=== PATIENT | male | born 1950 | race Caucasian/White ===

== ENCOUNTER 2016-03-08 19:46 | Inpatient (IN) | payer MEDICARE ==
[~2016-03-08] VITALS: Ht 170.2 cm; Wt 72.6 kg
[~2016-03-08 19:46] MED LIST: ASCO10007 PO; ASPI325T32 PO; CHOL200020 PO; DILT30TA30 PO; FENO160T14 PO; GLUC1CAP35 PO; HYDR25TA4 PO; INSU100I13 SUBQ; INSU100I18 SUBQ; INSU100I25 SQ; KRIL1CAP PO; LISI40TA PO; METF10002 PO; VENL75CA PO; fentaNYL-PF 50 mCg/mL 2 mL Inj ONE
[2016-03-08 20:09] VITALS: BP 130/71; PULSE 108; RESP 16; O2SAT 97
--- NOTE | 2016-03-08 21:06 | ED.REPORT ---
HPI-General Illness Date of Service Mar 08, 2016 ED Provider: Júnior Cuellar MD Patient is a 66 year old male with a history of diabetes mellitus, hypertension , and recurrent abscess to his left upper thigh who presents to the ED with a large abscess to his left upper leg that was been draining purulent discharge since yesterday. He denies associated pain or warmth of the area. The patient first has surgery in August of 2015 after he developed an abscess on his left upper thigh, unknown cause. He then developed another abscess in this same location, for which he also underwent an I&D procedure. All of these surgeries were preformed at [facility], but he is unsure of who his surgeon was. He states that when he was last discharged from their facility he was informed that he was "no longer their problem". The patient was seen by Dr. Lerner today, who told him to present to [facility] to establish care at this facility. Patient was found to have an elevated WBC and an ultrasound of the area that showed a complex area of heteroechogenicity consistent with abscess. He denies fever, chills, nausea, or vomiting. Nursing Notes Stated Complaint: LEFT THIGH ABSCESS Chief Complaint: Skin Rash/Abscess Nursing Notes Reviewed: Yes Allergies: Coded Allergies: No Known Allergies (Verified Allergy, Unknown, 03/08/16) Scheduled Ascorbic Acid (Vitamin C) 1,000 Mg Tab.chew 1,000 MG PO DAILY Aspirin (Aspirin) 325 Mg Tablet.dr 325 MG PO DAILY Atorvastatin (Lipitor) 20 Mg Tablet 20 MG PO DAILY Cholecalciferol (Vitamin D3) (Vitamin D3) 2,000 Unit Capsule 2,000 UNIT PO DAILY Diltiazem ER (Diltiazem ER) 120 Mg Cap.er.12h 120 MG PO DAILY Fenofibrate (Fenofibrate) 160 Mg Tablet 160 MG PO DAILY Finasteride (Finasteride) 5 Mg Tablet 5 MG PO DAILY Insulin Detemir (Levemir Flextouch) 100 Unit/1 Ml Insuln.pen 30 UNIT SQ QAM Insulin Lispro (HumaLOG U100 Insulin Pen) 100 Unit/1 Ml Insuln.pen UNIT SUBQ TID -INSULIN sliding scale insulin Melatonin/Pyridoxine (Melatonin 5 mg Tablet) 1 Each Tablet 1 EACH PO HS Metformin (Metformin) 500 Mg Tablet 1,000 MG PO BID Mirtazapine (Mirtazapine) 15 Mg Tablet 15 MG PO HS Tamsulosin (Flomax) 0.4 Mg Capsule 0.4 MG PO DAILY Venlafaxine ER (Effexor XR) 75 Mg Cap.er.24h 225 MG PO DAILY Vitamin E Mixed (Vitamin E) 400 Unit Capsule 400 UNIT PO DAILY Scheduled PRN Acetaminophen (Extra Strength Non-Aspirin) 500 Mg Tablet 1,000 MG PO Q4H PRN PRN For Pain General Time Seen by MD: 21:06 Chief Complaint Other (left thigh abscess) Hx Obtained From: Patient Arrived By: Walk-in Sudden in Onset?: No Onset Occurred: Yesterday Symptom Duration: Since onset Location: : Thigh left Severity: Current: No pain currently Severity: Maximum: Moderate Recent Healthcare: Recent doctor visit, Previous surgery Similar Sx Previous: Yes Past Medical History Past Medical History heart murmur Reports: Diabetes mellitus, Hyperlipidemia, Hypertension Reports: Depression Past Surgical History recurrent I&D of left upper thigh abscess adenoidectomy Reports: Tonsillectomy Smoking History Never Smoker Social History Alcohol Use: "Social" Drug Use: Denies drug use Other Social History: Local resident 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 Physical Exam Vital Signs Vital Signs Date Time Temp Pulse Resp B/P Pulse Ox O2 Delivery O2 Flow Rate FiO2 03/08/16 20:09 36.8 108 16 130/71 97 Room Air Initial VS: Reviewed Skin: Warm, Dry, No cyanosis Neurologic: Alert, Oriented, Nonfocal Psychiatric: Mood/affect normal, Behavior normal, Normal thought content General/Constitutional: Awake, Alert, No acute distress Head / Eyes: Normocephalic, PERRL, EOMI ENT: Airway patent, Mucous membranes moist Neck: Supple, Full range of motion Respiratory / Chest: Breath sounds NL, Breath sounds = bilat, No respiratory distress, No rales, No rhonchi, No wheezing Cardiovascular: Heart rate NL, Regular rhythm, Heart sounds NL, No murmurs Upper Extremities Upper Extremity / MS: Full range of motion, Neurologic intact, Vascular intact Lower Extremity / Pelvis / MS: No erythema, Neurologic intact, Vascular intact Vertical wound to the left thigh, 2cm long area draining mildly purulent serous material. Martin made in ultrasound show upper extension to the trochanter superiorly and down to the lower thigh inferiorly. No redness surrounding or bulk. Interpretation & Diagnostics US EXTREMITY SONOGRAM LIMITED, CONCRETE JOURNEYMAN IMPRESSION: Complex area of heteroechogenicity within the left side the area of concern. Finding is consistent with history of abscess. Other etiologies can include hematoma. Dictated by: Nicole Orlando M.D. on 03/08/2016 at 20:01 Approved by: Nicole Orlando M.D. on 03/08/2016 at 20:01 Lab Results Interpretation Result Diagram: 03/08/16 2205 03/09/16 0604 ECG Interpretation ECG Interpretation: Tachycardia, Rate 100 Time: 21:59 Interpreted by: ED physician Normal ECG Interpretation: No acute ischemic changes X-Ray Chest Interpretation Chest Xray Interpretation: Impression: No acute process. View: Portable Interpretation / Wet Read by: Wet read ED physician Re-Eval/Medical Decision Med Decision/Clinical Course 66-year-old referred for evaluation of a large abscess draining on his left thigh. He had a 25,000 white count with outpatient lab done earlier today. He is quite anemic with a hemoglobin of 6.8. Cause of that is not known at this time. He will require transfusion preoperatively, and is admitted to medicine service with surgical consultation. Preop EKG is benign. X-rays unremarkable. Source of Hx: Old records Time of Eval: 21:43 Re-Evaluation/Progress Note: Informed the patient that he will need to be admitted to the hospital for surgery. Patient understands and agrees with this plan. All questions were addressed. Time of Eval: 22:53 Patient Status: Condition improved Re-Evaluation/Progress Note: Informed the patient that he is anemic on labs. He will need to be transfused and then taken to the OR. Patient understands and agrees with this plan. Consultation #1: Referral / Consult Name: Chintan Ha MD Consulted With: Surgeon Call Returned at: 21:44 Commercial Fisher: Will see patient, Agrees with eval, Agrees with plan, Requested OR, Accepts admit Note: Spoke with Dr. Ha, surgeon, about the patient's case. He agrees with the plan for surgery and to admit the patient. Consultation #2: Referral / Consult Name: Chintan Ha MD Consulted With: Surgeon Call Returned at: 22:50 Note: Spoke with Dr. Ha. Informed him of the finding of a low H&H. Patient will need to be transfused and then taken to the OR. Admit to medicine. Consultation #3: Referral / Consult Name: Fidel Park MD Consulted With: Hospitalist Call Returned at: 22:55 Commercial Fisher: Will see patient, Agrees with eval, Agrees with plan, Accepts admit Note: Spoke with Dr. Park, hospitalist, who agrees to accept the patient for admit. Counseled Regarding: Diagnosis, Lab results, Need for admission Discharge & Departure Shift Change Sign-Out Response to Therapy: Improved Primary Impression: Abscess of left thigh Additional Impressions: Leukocytosis Leukocytosis type: unspecified Qualified Code: D72.829 - Elevated white blood cell count, unspecified SIRS (systemic inflammatory response syndrome) Anemia Anemia type: unspecified type Qualified Code: D64.9 - Anemia, unspecified Disposition: ADMITTED TO HOSPITAL Discharge Condition All VS Reviewed: Yes Condition: Stable Referrals: Blas Lerner MD (PCP) Isaíasibe Attestation Portions of this note were transcribed by Melanie Aranda. I, Dr. Cuellar personally performed the history, physical exam and medical decision-making; I reviewed and confirmed the accuracy of the information in the transcribed note. Signed by: Letty Lawrence, 03/08/2016 2300 copies to: Blas Lerner MD, Christopher W MD Mar 08, 2016 21:06 Melanie Aranda Mar 08, 2016 21:45
[2016-03-08] MEDS ORDERED: ATOR20TA PO (21:16)
[2016-03-08] MEDS ORDERED: TAMS0.4C98 PO (21:16)
[2016-03-08] MEDS ORDERED: FINA5TAB9 PO (21:16)
[2016-03-08] MEDS ORDERED: ACET-2561 PO (21:16)
[2016-03-08] MEDS ORDERED: DILT120C10 PO (21:16)
[2016-03-08] MEDS ORDERED: MIRT15TA6 PO (21:17)
[2016-03-08] MEDS ORDERED: MELA1TAB16 PO (21:17)
[2016-03-08] MEDS ORDERED: METF500T4 PO (21:17)
[2016-03-08] MEDS ORDERED: VITA400C64 PO (21:18)
[2016-03-08] MEDS ORDERED: CHOL200047 PO (21:19)
[2016-03-08] MEDS ORDERED: ASCO100089 PO (21:19)
[2016-03-08] MEDS ORDERED: 0.9% Sodium Chloride 1,000 ML IV ONE (21:38)
[2016-03-08] MEDS ORDERED: Piperacillin-Tazo 3.375 Gm Inj 3.375 GM in Dextrose 5% Minibag Plus 50 ML IV ONE (22:15)
[2016-03-08 22:34] LABS: INR 1.25 ratio
[2016-03-08 22:39] LABS: Magnesium 1.9 mg/dL (1.6-2.6); Phosphorus 2.6 mg/dL (2.5-4.9)
[2016-03-08 22:43] LABS: BASOPHILS % (AUTO) 0.1 % (0-3); EOSINOPHILS % (AUTO) 0.3 % (0-5); MONOCYTES % (AUTO) 25.9 % (4-12); Mean Corpuscular Hemoglobin 36.2 pg (27.0-35.0); Mean Corpuscular Volume 111.2 fL (81-100); Platelet Count 171 bil/L (150-400)
--- NOTE | 2016-03-08 22:45 | PCM.HPANE ---
Patient Data Surgeon Admitting Provider: Attending Provider:Chintan Ha MD Primary Care Physician:Blas Lerner MD Other Provider:RashadocGhadaQuinter Anesthesia Reason for Visit Thigh Abscess Leukocytosis Ht/WT & BMI Height (Feet): 5 Height (Inches): 7 Weight (Kilograms): 74.55 Body Mass Index Allergies Coded Allergies: No Known Allergies (Verified Allergy, Unknown, 03/08/16) Past Anesthesia History Anesthesia History: Denies:: Abnormal Airway, Anesthesia Reactions, Difficult Intubation, Fam Anesthesia Reaction, Fam Malignant Hypertherm, Malignant Hyperthermia Diabetes History Hx Diabetes?: Yes MRSA MRSA: No Medications Blood Thinner: Aspirin Reported Medications Ascorbic Acid (Vitamin C)1,000 Mg Tab.chew1,000 Mg PO DAILY 03/08/16 Cholecalciferol (Vitamin D3) (Vitamin D3)2,000 Unit Capsule2,000 Unit PO DAILY 03/08/16 Vitamin E Mixed (Vitamin E)400 Unit [id number] Unit PO DAILY 03/08/16 Mirtazapine 15 Mg Hdyqzu28 Mg PO HS 03/08/16 Metformin 500 Mg Tablet1,000 Mg PO BID 03/08/16 Melatonin/Pyridoxine (Melatonin 5 mg Tablet)1 Each Tablet1 Each PO HS 03/08/16 Tamsulosin (Flomax)0.4 Mg Capsule0.4 Mg PO DAILY 03/08/16 Finasteride 5 Mg Tablet5 Mg PO DAILY 03/08/16 Diltiazem ER 120 Mg Cap.er.34e477 Mg PO DAILY 03/08/16 Atorvastatin (Lipitor)20 Mg Wnmljy77 Mg PO DAILY 03/08/16 Acetaminophen (Extra Strength Non-Aspirin)500 Mg Tablet1,000 Mg PO Q4H PRN For Pain 03/08/16 Aspirin 325 Mg Tablet.dr325 Mg PO DAILY 08/19/14 Insulin Detemir (Levemir Flextouch)100 Unit/1 Ml Insuln.pen30 Unit SQ QAM 08/18/14 Insulin Lispro (HumaLOG U100 Insulin Pen)100 Unit/1 Ml Insuln.pen Unit SUBQ TID- INSULIN sliding scale insulin 08/18/14 Fenofibrate 160 Mg Vwsinj765 Mg PO DAILY 08/18/14 Venlafaxine ER (Effexor XR)75 Mg Cap.er.99d107 Mg PO DAILY 04/27/14 Discontinued Reported Medications Ascorbic Acid (Vitamin C)1,000 Mg Tablet1,000 Mg PO DAILY 08/19/14 Cholecalciferol (Vitamin D3) (Vitamin D-3)2,000 Unit Capsule2,000 Unit PO DAILY 08/19/14 Insulin Glargine (Lantus U100 Solostar Insulin Pen)100 Unit/1 Ml Insuln.pen1 Unit SUBQ QPM-INSULIN #1 PENINJ Ref 0 08/19/14 Lisinopril 40 Mg Ikgmin11 Mg PO DAILY 30 Days Ref 0 08/18/14 Krill/Om3/Dha/Epa/Om6/Lip/Astx (Krill Oil 1,000 mg Softgel)1 Each Capsule1 Each PO 08/18/14 Hydrochlorothiazide 25 Mg Hnhexi93 Mg PO DAILY 30 Days Ref 0 08/18/14 Glucosa Raya 2Kcl/Chondroitin Raya (Glucosamine & Chondroitin Cap)1 Each Capsule1 Each PO 08/18/14 Metformin 1,000 Mg Tablet1,000 Mg PO BIDWM 30 Days Ref 0 04/27/14 Diltiazem (Cardizem)30 Mg Tablet PO ACHS 30 Days Ref 0 04/27/14 History HEENT History: Denies:: Abnormal Airway Difficult Intubation Hearing Problem Hx of Heart Problems?: Yes Cardiovascular History: Positive for:: Hypertension Denies:: Congestive Heart Failure Hx of Respiratory Problem?: No Respiratory History: Denies:: Tuberculosis Neurological History: Denies:: CVA Hx of GI Problems?: Yes Psycho Social History: Positive for:: Hx Depression Hx Surgeries?: Yes (TONSILS/ADENOIDS) Hx Any Other Health Problems?: Yes Hx Diabetes: Yes Hx Alcohol Use: Yes ("OCCASIONALLY")Hx Substance Use: No Smoking Status: Never Smoker Have You Smoked inLast 12 mo: No Stop/Bang TAINA Risk Assessment: Low Risk, <3 Yes TAINA Category 1: Yes Risk Assessment Category Category 1A: Patient has history of documented sleep apnea, and HAS NOT received any narcotic, sedative or anesthesia administration during this stay. Category 1B: Patient has history of documented sleep apnea, and HAS received any narcotic , sedative or anesthesia administration during this stay Category 2: Patient has SUSPECTED Obstructive Sleep Apnea, and HAS received any narcotic , sedative or anesthesia administration during this stay. Category 3: Patient has SUSPECTED Obstructive Sleep Apnea and HAS NOT received narcotic, sedative or anesthesia administration during this stay. Category 4: Outpatient in Procedural Areas with known sleep apnea or who screen positive for High Risk via the STOP/BANG questionnaire. Exam Exam Vital Signs Vital Signs Date Time Temp Pulse Resp B/P Pulse Ox O2 Delivery O2 Flow Rate FiO2 03/08/16 20:09 36.8 108 16 130/71 97 Room Air General Appearance: Alert HEENT/AIRWAY: MP 2 Lungs: Clear to Auscultation Heart: Exam Unremarkable Meds/Labs/Diagnostics Admission Meds Current Medications Sodium Chloride 1,000 ml @ 0 mls/hr Q0M ONCE IV Last administered on 22:27; Start 03/08/16 at 21:38; Stop 03/08/16 at 21:46; Status DC Piperacillin Sod/ Tazobactam Sod/ Dextrose/Water (Zosyn 3.375 Gm Inj/D5W Minibag Plus) 50 ml @ 100 mls/hr ONCE ONCE IV Last administered on 03/08/16 22:24; Start 03/08/16 at 22:15; Stop 03/08/16 at 22:44; Status DC Labs CBC Test 03/08/16 22:05 03/08/16 22:52 White Blood Count 21.2th/mm3 (3.8-10.1) Red Blood Count 1.88mil/mm3 (4.40-5.80) Hemoglobin 6.8g/dL (13.8-17.2) Hematocrit 20.9% (41.0-50.0) Mean Corpuscular Volume 111.2fL (81-100) Mean Corpuscular Hemoglobin 36.2pg (27.0-35.0) Mean Corpuscular Hemoglobin Concent 32.5% (32.0-37.0) Red Cell Distribution Width 19.1% (12.3-15.4) Platelet Count 171bil/L (150-400) Neutrophils (%) (Auto) 62.0% (40-74) Lymphocytes (%) (Auto) 7.3% (14-46) Monocytes (%) (Auto) 25.9% (4-12) Eosinophils (%) (Auto) 0.3% (0-5) Basophils (%) (Auto) 0.1% (0-3) Erythrocyte Sedimentation Rate > 140mm/hr (0-30) Hold Purple Top Tube Received (Received) CMP Test 03/08/16 22:05 Sodium Level 132mEq/L Potassium Level 4.7mEq/L Chloride Level 96mEq/L Carbon Dioxide Level 21mmol/L Blood Urea Nitrogen 22mg/dL Creatinine 1.16mg/dL Estimat Glomerular Filtration Rate 67mL/min Glucose Level 154mg/dL Lactic Acid Level 1.5mmol/L Calcium Level 8.9mg/dL Phosphorus Level 2.6mg/dL Magnesium Level 1.9mg/dL Total Bilirubin 0.3mg/dL Aspartate Amino Transf (AST/SGOT) 14U/L Alanine Aminotransferase (ALT/SGPT) 7U/L Alkaline Phosphatase 74U/L Total Protein 7.1g/dL Albumin 2.9g/dL Test 03/08/16 22:05 03/08/16 22:17 Prothrombin Time 13.4sec (8.1-12.5) Prothromb Time International Ratio 1.25ratio Activated Partial Thromboplast Time 32.3sec (22.8-33.0) Plan Impression Patient chart reviewed, patient interviewed and anesthestic plan with risks, benefits, and alternatives discussed, and informed consent obtained. ASA Physical Status: ASA3 Severe Disease Anesthetic Plan: GA Bene/Risks/Altern/Consents: Yes HP Complete Prior to Induction: Yes Other Patient's questions answered, agree to proceed. Haja Stratton MD Mar 08, 2016 22:45
[2016-03-08 23:09] LABS: ERYTHROCYTE SEDIMENTATION RATE > 140 mm/hr (0-30)
[2016-03-08 23:13] LABS: APPEARANCE,URINE CLOUDY (CLEAR,HAZY); COLOR,URINE DARK YELLOW (YELLOW); OCCULT BLOOD,URINE SMALL (NEGATIVE); PH,URINE 5.5 (5.0-8.0); UROBILINOGEN,URINE NORMAL (NORMAL)
[2016-03-08] MEDS ORDERED: Lactated Ringer's 1,000 ML IV ONE (23:15)
[2016-03-08] MEDS ORDERED: Ondansetron 2 mg/mL 2 mL Inj ONE (23:23)
[2016-03-08] MEDS ORDERED: Propofol 10,000 mCg/mL 20 mL Inj ONE (23:23)
[2016-03-08] MEDS ORDERED: Bupivacaine-MPF 0.5% W/EPI 30 mL Inj INFILTRATE ONE (23:46)
[2016-03-08] MEDS ORDERED: Labetalol 5 mg/mL 4 mL Inj IV PRN (23:50)
[2016-03-08] MEDS ORDERED: HYDROmorphone 1 mg/mL Inj IVPUSH PRN (23:50)
[2016-03-08] MEDS ORDERED: Lactated Ringer's 500 ML IV PRN (23:50)
[2016-03-08] MEDS ORDERED: MetoCLOpramide 5 mg/mL 2 mL Inj IVPUSH PRN (23:50)
[2016-03-08] MEDS ORDERED: Ondansetron 2 mg/mL 2 mL Inj IVPUSH PRN (23:50)
[2016-03-08] MEDS ORDERED: Dexamethasone 4 mg/mL Inj IVPUSH PRN (23:50)
[2016-03-08] MEDS ORDERED: fentaNYL-PF 50 mCg/mL 2 mL Inj IVPUSH PRN (23:50)
[2016-03-08] MEDS ORDERED: Phenylephrine 10,000 mCg/mL Inj IVPUSH PRN (23:50)
[2016-03-08] MEDS ORDERED: EPHEDrine Sulfate 50 mg/mL Inj IVPUSH PRN (23:50)
[2016-03-08] MEDS ORDERED: Lactated Ringer's 1,000 ML IV SCH (23:50)
[2016-03-08] MEDS ORDERED: Atropine 0.4 mg/mL Inj IVPUSH PRN (23:50)
[2016-03-09] VITALS (18 sets, daily range): BP systolic 92–122; BP diastolic 53–80; PULSE 66–100; RESP 18–31; O2SAT 92–97
--- NOTE | 2016-03-09 00:24 | PCM.ANEP2 ---
Post Anesthesia Evaluation ASA/CMS Post Anesthesia VS in Patient's Normal Range?: Yes Resp Stable; Airway Patent?: Yes CV Function & Hydration Stable: Yes Mental Status Recovered?: Yes Pain control Satisfactory?: Yes N/V Control Satisfactory?: Yes Haja Stratton MD Mar 09, 2016 00:24
--- NOTE | 2016-03-09 00:24 | PCM.ANEP1 ---
Post Anesthesia Phase 1 PACU Phase 1 Assessment Vital Signs Vital Signs Date Time Temp Pulse Resp B/P Pulse Ox O2 Delivery O2 Flow Rate FiO2 03/08/16 20:09 36.8 108 16 130/71 97 Room Air BP 113/58 sat 93% HR90 T37.9 awake Anesthetic Administered: GA Level of Alertness: Awake, talking CONTRERAS's with Equal Strength: Yes Pain: No Nausea or Vomiting: No Oxygen Delivery: Room Air Lungs: Clear to Auscultation Dermatome Level: Full Sensation Haja Stratton MD Mar 09, 2016 00:24
--- NOTE | 2016-03-09 00:34 | PCM.SURGOP ---
Surgical Operative Report Date of Service: Mar 09, 2016 Pre Operative Diagnosis Left thigh abscess Post Operative Diagnosis Chronic left thigh subfascial abscess Procedure: Incision and drainage of complex left thigh subfascial abscess with debridement Surgeon and Manager Er: Surgeon: Chintan Ha MD Assistants: Erinn Jimenez MS3 Indication for Procedure 66-year-old diabetic man who presented in August with a perirectal abscess, requiring incision and drainage at [facility]. Reportedly, the abscess was large and complex. He then recovered, but developed a left thigh abscess, requiring incision and drainage, and a large subsequent seroma. Imaging studies are not complete, in terms of imaging his entire thigh and pelvis at the same time, but there is possibly some suggestion of fluid tracking from his perirectal collection to his left lateral thigh. He presented to his primary care provider with increasing swelling of the left thigh. He had a leukocytosis of 22,000, and an ultrasound was performed today which demonstrated a 30 cm complex fluid collection in the left thigh. After discussion of risks and benefits, he agreed to proceed with incision and drainage of left thigh abscess. Findings: The collection measured 30 cm x 8 cm, with a depth of 6 cm. It was subfascial, and extended posterior to the left greater trochanter. A definite connection to the perirectal abscess cavity could not be demonstrated. There was a small amount of pus, but a large amount of gelatinous chronic inflammatory debris. Procedure Details After smooth induction of general anesthesia, he was placed in the supine position, and was prepped and draped in wide sterile fashion. A procedural pause was performed according to the SCOAP checklist, and all were found to be in agreement. The existing left anterior thigh incision was explored with a hemostat, yielding some turbid yellow fluid, which was collected and sent for culture. Probing that incision with blunt Dunia clamp followed by a Yankauer suction revealed that the subfascial fluid collection extended to the ramírez placed by ultrasound, extending 30 cm craniocaudal. Counterincisions were made with electrocautery at the superior and inferior aspects, on the lateral thigh. The distal incision was at the level of the femoral condyle. The mid thigh incision was extended with electrocautery. All 3 incisions measured approximately 2-3 cm in length craniocaudal. Through those incisions, the subfascial cavity was explored. It contained a small amount of purulent fluid, but a large amount of chronic inflammatory debris and gelatinous material. This was debris did and evacuated. The most useful instrument for debridement of the gelatinous debris was a D&C curet. Loculations were broken up. At the end of debridement, there was no significant residual gelatinous debris. When the superior extent of the cavity was explored, and extended through a narrow tunnel posterior to the left greater trochanter. This area could not be fully explored at the time of this operation. If he has evidence of incomplete healing, and exam under anesthesia in the lithotomy position while explored through his perirectal wound would be useful to see if a fistulous connection is present. Once the gelatinous debris had been evacuated, the cavity was extensively irrigated with warm saline and suctioned. Hemostasis was adequate. The wounds were then connected using one-inch David drains 2, looped through the deep components, and secured to themselves using 2-0 nylon suture. Sterile dressings were then applied to the skin using abdominal pads and a Kerlix wrap. At the end of the case all needle and sponge counts were correct 2. The patient was awakened from anesthesia without difficulty, and taken to the recovery room in satisfactory condition, having tolerated the procedure well. Complications There were no periprocedural complications identified. Surgical Specimen Removed: No Specimen sent to Pathology: Not applicable Anesthetic Plan: GA Grafts, Implants: None Output, Estimated Blood Loss: 20 Blood Administration during cosme: No Drains: Pen Paige Catheters: None copies to: Blas Lerner MD, Joshua D MD Mar 09, 2016 00:34
[2016-03-09] MEDS ORDERED: Polyethylene Glycol (PEG) 17 Gm Powder PO PRN (00:45)
[2016-03-09] MEDS ORDERED: Glucose 40% Oral Gel 15 Gm Tube PO PRN (00:45)
[2016-03-09] MEDS ORDERED: Ondansetron 2 mg/mL 2 mL Inj IVPUSH PRN (00:45)
[2016-03-09] MEDS ORDERED: Alum-Mag Hydrox-Simeth 30 mL Suspension PO PRN (00:45)
--- NOTE | 2016-03-09 00:47 | PCM.HPMED ---
Subjective Date of Service Mar 09, 2016 Primary Provider: Admitting Physician: Fidel Park MD Primary Care Physician: Blas Lerner MD Attending Physician: Chintan Ha MD Chief Complaint: left thigh abscess History of Present Illness: Patient is a 66 year old male with a history of diabetes mellitus, chronic afib , hypertension, osteomyelitis, and recurrent abscess to his left upper thigh who presents to the ED with a large abscess to his left upper leg that was been draining purulent discharge since yesterday. Patient was originally evaluated at and sent to the ED for further treatment. He reports the symptoms began yesterday and he has noticed subjective fevers. He denies any chills, n/v/d, or neck stiffness. Patient reports that he has had multiple I&Ds of this left thigh and merced-rectal abscess in the past year at [facility] in [place]. He reports he had a drain placed, but that was removed about a month ago. He was recently at [facility] for rehab and IV antibiotics via a PICC line for his abscess and osteomyelitis. In the ED his vitals were stable. His labs were pertinent for WBC of 21.2 and Hgb of 6.8 with MCV of 111.2 and ESR of >140 and lactic of 1.5. His UA showed Large LEs with >50 urine WBC but no casts. He had an U/S of his left thigh that is consistent with abscess formation. Surgery was notified and patient was taken for urgent I&D. Review of Systems: 12 Point ROS negative except as stated in HPI Allergies Coded Allergies: No Known Allergies (Verified Allergy, Unknown, 03/08/16) PMH Hydrocele BPH w/o LUTS Cavitary Lesion of Lung Chronic Atrial Fibrillation T2DM requiring Insulin H/o Osteomyelitis of left femur H/o Perirectal Absccess Chronic Anemia Hyperlipidemia Mood disorder Surgical History Multiple I&D with drain placement of left thigh/merced-rectal abscess Family History History of [place] and Stroke- Father Social History Hx Alcohol Use: Yes ("OCCASIONALLY") Hx Substance Use: No Hx Tobacco Use: No Smoking Status: Never Smoker Living Arrangement: Assisted Living Exam Vital Signs Vital Sign - Last Date Time Temp Pulse Resp B/P Pulse Ox O2 Delivery O2 Flow Rate FiO2 03/08/16 20:09 36.8 108 16 130/71 97 Room Air Intake and Output 03/08/16 03/08/16 03/09/16 Cumulative From/Thru 15:00 23:00 07:00 03/08/16 19:52 - 03/08/16 23:15 Intake Total 250 ml 1000 ml 1250 ml Balance 250 ml 1000 ml 1250 ml Intake IV Total 250 ml 1000 ml 1250 ml Exam Gen: Well developed male in NAD HEENT: Sclera anicteric, Oropharynx non-erythematous Neck: Soft, non-tender CV: RRR, soft systolic murmur noted Resp: CTAB, normal effort Abd; Soft, non-tender, non-distended MSK: Approximately 2cm vertical open wound with purulent drainage on left anterior thigh. MS grossly intact and equal Neuro: Sensation grossly intact, Alert and Oriented x3 Psych: Appropriate mood and affect Skin: Warm, dry, wound as above. Lab and Diagnostics Result Diagram: 03/08/16220403/08/162204 X-Rays, CTs and MRIs US EXTREMITY SONOGRAM LIMITED, SHOVELER IMPRESSION: Complex area of heteroechogenicity within the left side the area of concern. Finding is consistent with history of abscess. Other etiologies can include hematoma. Dictated by: Nicole Orlando M.D. on 03/08/2016 at 20:01 Approved by: Nicole Orlando M.D. on 03/08/2016 at 20:01 ECG Interpretation ECG Interpretation: Tachycardia, Rate 100 Time: 21:59 Interpreted by: ED physician Normal ECG Interpretation: No acute ischemic changes X-Ray Chest Interpretation Chest Xray Interpretation: Impression: No acute process. View: Portable Interpretation / Wet Read by: Wet read ED physician Assessment & Plan Patient is a 66 year old male with a history of diabetes mellitus, hypertension , osteomyelitis, and recurrent abscess to his left upper thigh who presents to the ED for evaluation of large left thigh abscess with purulent drainage that began yesterday. #Abscess with Purulent Drainage, Left anterior thigh, POA This is a recurrent problem for this patient. He is urgently taken by General Surgery for I&D. Upon further questioning, patient reports that he continues to inject his Insulin into his thighs. With his recurrent infections, will educate patient to inject in a new area. Wound care consult pending, Wound was left open for drainage. Abscess culture pending, Consider antibiotics if drainage insufficient for treatment. Advance diet as tolerated after surgery IV Dilaudid prn pain #Chronic Macrocytic Anemia, POA We do not have any of his previous records, but he does report chronic anemia although he is unsure why and denies history of alcoholism Hgb 6.9 on admit, will transfuse 2 units after surgery Monitor H&H #Chronic Atrial fibrillation, POA Per history, patient has chronic afib, only on full dose Aspirin. Continue Aspirin 325mg daily Continue Diltiazem ER daily #Asymptomatic Bacteriuria, POA Pyuria noted on UA. Will await patient's culture since he does not complain of any symptoms. #Insulin Dependent DM2, POA Per med rec, patient injects Levemir 30 units QAM and Lispro S/S Will place patient on Lispro Medium correctional scale, Will continue Metformin after surgery Diabetic education recommended #Hypertension, POA Continue patient's home medications #Hyperlipidemia, POA Continue Statin #Mood Disorder, POA Continue Effexor and Mirtazapine, He reports this is for his depression #BPH, POA Continue Flomax Pain Evaluation: Adequate Pain Control VTE Prophylaxis: Sub-Q Heparin (Unfractionated) Resuscitation Status: CPR: Attempt Resuscitation Attending Statement The patient was seen and examined together with Dr. Jay on 03/08 and I agree with the history, exam and plan as outlined in the note above. Silviano Jay DO Mar 09, 2016 00:23 Fidel Park MD Mar 09, 2016 01:29
[2016-03-09] MEDS ORDERED: diphenhydrAMINE 25 mg Capsule PO ONE (01:20)
[2016-03-09] MEDS ORDERED: 0.9% Sodium Chloride 250 ML IV PRN (01:20)
[2016-03-09] MEDS: Heparin 5,000 Unit/mL Inj SUBQ SCH ×3 (01:42→16:06)
[2016-03-09 06:50] LABS: Mean Corpuscular Hemoglobin 34.5 pg (27.0-35.0); Mean Corpuscular Volume 108.4 fL (81-100); Platelet Count 143 bil/L (150-400)
[2016-03-09 08:17] LABS: NEUTROPHILS % (AUTO) 65 % (40-74)
[2016-03-09 08:18] LABS: BASOPHILS % (AUTO) 0 % (0-3); EOSINOPHILS % (AUTO) 1 % (0-5); MONOCYTES % (AUTO) 20 % (4-12)
[2016-03-09] MEDS: Insulin GLARgine 100 Unit/mL Syringe SUBQ SCH (08:30)
[2016-03-09 08:50] LABS: ERYTHROCYTE SEDIMENTATION RATE > 140 mm/hr (0-30)
[2016-03-09] MEDS: Insulin LISPRO 300 Unit/3 mL Inj SUBQ SCH ×4 (09:05→22:00)
[2016-03-09] MEDS: Diltiazem CD 120 mg ER24 Capsule PO SCH (09:43)
[2016-03-09] MEDS: Venlafaxine XR 75 mg ER24 Capsule PO SCH (09:43)
[2016-03-09] MEDS: Ascorbic Acid 500 mg Tablet PO SCH (09:45)
--- NOTE | 2016-03-09 09:51 | DRSVH ---
PROCEDURE: X-RAY CHEST ONE VIEW, PORTABLE ([id number]) INDICATIONS: preop TECHNIQUE: One view of the chest was acquired. COMPARISON: [facility], CR, XR CHEST 2V AP/PA AND LAT, 11/27/2015, 10:50 AM. [facility], US, US VENOUS LEG DPLX UNI LT, 01/11/2016, 17:02. FINDINGS: Surgical changes and devices: None. Lungs and pleura: No pleural effusions or pneumothorax. Lungs are clear. Mediastinum: Mediastinal contours appear normal. Heart size is normal. Bones and chest wall: No suspicious bony lesions. Overlying soft tissues appear unremarkable. IMPRESSION: No acute cardiopulmonary disease. Dictated by: Toney Wellington RRA Interpreted: Deana Briseno MD on 03/09/2016 at 9:50 Transcribed by: JOSE on 03/09/2016 at 9:50 Approved by: Deana Briseno MD, PhD on 03/09/2016 at 16:34
[2016-03-09] MEDS ORDERED: Piperacillin-Tazo 3.375 Gm Inj 3.375 GM in Dextrose 5% Minibag Plus 50 ML IV SCH (12:10)
[2016-03-09] MEDS: Vancomycin Dose per Pharmacist XX SCH (12:10)
--- NOTE | 2016-03-09 12:29 | PCM.PNMED ---
Subjective Date of Service Mar 09, 2016 Subjective Patient appears comfortable resting in bed. He denies any fevers or chills. He did go to the OR yesterday with general surgery for I&D of recurrent left thigh abscess. Patient tells me this is been going on for the past 6 months. He has been seen at least 3 times in [facility] for evaluation of this. Also of note patient is fairly anemic and he tells me that he had an extensive workup of his anemia including GI tract evaluation which did not show a source of blood loss. He tells me that they thought it was due to bleeding into that abscess area. He did receive transfusions last night of 2 units PRBCs. Exam Vital Signs Vital Sign - Last Date Time Temp Pulse Resp B/P Pulse Ox O2 Delivery O2 Flow Rate FiO2 03/09/16 08:59 36.9 28 100/64 96 Room Air 03/09/16 06:19 90 03/09/16 00:50 2 Intake and Output 03/08/16 03/08/16 03/09/16 Cumulative From/Thru 15:00 23:00 07:00 03/08/16 00:33 - 03/09/16 06:04 Intake Total 250 ml 1699 ml 1949 ml Output Total 270 ml 270 ml Balance 250 ml 1429 ml 1679 ml Intake Oral 354 ml 354 ml IV Total 250 ml 1345 ml 1595 ml Output Urine Total 250 ml 250 ml Estimated Blood Loss 20 ml 20 ml # Bowel Movements 0 0 Exam Constitutional: Middle-aged man who appears comfortable Head: Normocephalic atraumatic Eyes: PERRLA DC EOMI Mouth: No lesions Chest: Clear to auscultation Cor: Regular rate and rhythm S1-S2 without murmur Abdomen: Soft nontender bowel sounds present Extremities: Right lower extremity has some old scarring areas in the anterior streeter same at the left. He does have his left upper thigh which is recently dressed by wound care hence I will not take that off at this time. Neuro: Alert and oriented 3, motor strength is intact bilaterally IVs and Medications Medications Reviewed: Medications were reviewed in detail Lab and Diagnostics Laboratory Tests 72 Hours Test 03/08/16 22:05 03/08/16 22:17 03/08/16 22:52 03/09/16 06:04 White Blood Count 21.2th/mm3 (3.8-10.1) 22.6th/mm3 (3.8-10.1) Red Blood Count 1.88mil/mm3 (4.40-5.80) 2.03mil/mm3 (4.40-5.80) Hemoglobin 6.8g/dL (13.8-17.2) 7.0g/dL (13.8-17.2) Hematocrit 20.9% (41.0-50.0) 22.0% (41.0-50.0) Mean Corpuscular Volume 111.2fL (81-100) 108.4fL (81-100) Mean Corpuscular Hemoglobin 36.2pg (27.0-35.0) 34.5pg (27.0-35.0) Mean Corpuscular Hemoglobin Concent 32.5% (32.0-37.0) 31.8% (32.0-37.0) Red Cell Distribution Width 19.1% (12.3-15.4) % (12.3-15.4) Platelet Count 171bil/L (150-400) 143bil/L (150-400) Neutrophils (%) (Auto) 62.0% (40-74) 65% (40-74) Lymphocytes (%) (Auto) 7.3% (14-46) 5% (14-46) Monocytes (%) (Auto) 25.9% (4-12) 20% (4-12) Eosinophils (%) (Auto) 0.3% (0-5) 1% (0-5) Basophils (%) (Auto) 0.1% (0-3) 0% (0-3) Erythrocyte Sedimentation Rate > 140mm/hr (0-30) > 140mm/hr (0-30) Prothrombin Time 13.4sec (8.1-12.5) Prothromb Time International Ratio 1.25ratio Activated Partial Thromboplast Time 32.3sec (22.8-33.0) Sodium Level 132mEq/L (134-144) 133mEq/L (134-144) Potassium Level 4.7mEq/L (3.5-5.2) 3.9mEq/L (3.5-5.2) Chloride Level 96mEq/L (97-108) 98mEq/L (97-108) Carbon Dioxide Level 21mmol/L (18-29) 20mmol/L (18-29) Blood Urea Nitrogen 22mg/dL (8-27) 21mg/dL (8-27) Creatinine 1.16mg/dL (0.76-1.27) 1.29mg/dL (0.76-1.27) Estimat Glomerular Filtration Rate 67mL/min (>59) 59mL/min (>59) Glucose Level 154mg/dL (60-99) 294mg/dL (60-99) Lactic Acid Level 1.5mmol/L (0.4-2.0) Calcium Level 8.9mg/dL (8.5-10.1) 7.9mg/dL (8.5-10.1) Phosphorus Level 2.6mg/dL (2.5-4.9) Magnesium Level 1.9mg/dL (1.6-2.6) Total Bilirubin 0.3mg/dL (0.0-1.2) 0.4mg/dL (0.0-1.2) Aspartate Amino Transf (AST/SGOT) 14U/L (0-50) 12U/L (0-50) Alanine Aminotransferase (ALT/SGPT) 7U/L (0-44) 6U/L (0-44) Alkaline Phosphatase 74U/L (25-160) 66U/L (25-160) Total Protein 7.1g/dL (6.4-8.4) 5.7g/dL (6.4-8.4) Albumin 2.9g/dL (3.4-5.0) 2.8g/dL (3.4-5.0) Procalcitonin 1.44ng/mL (See Comment) Urine Color Dark yellow (YELLOW) Urine Appearance Cloudy (CLEAR,HAZY) Urine pH 5.5 (5.0-8.0) Urine Specific [place] 1.020 (1.003-1.035) Urine Protein 30mg/dL (NEG,TRACE) Urine Glucose (UA) Negativemg/dL (NEGATIVE) Urine Ketones Negativemg/dL (NEGATIVE) Urine Occult Blood Small (NEGATIVE) Urine Nitrite Negative (NEGATIVE) Urine Bilirubin Negative (NEGATIVE) Urine Urobilinogen Normalmg/dL (NORMAL) Urine Leukocyte Esterase Large (NEGATIVE) Urine RBC 0-2/hpf (0-2) Urine WBC >50/hpf (0-5) Urine Epithelial Cells Occasional/hpf (NONE-MOD) Urine Crystals None seen (NONE SEEN) Urine Bacteria None/hpf (NONE-FEW) Urine Hyaline Casts None/lpf (NONE) Urine Granular Casts None seen (NONE SEEN) Urine Waxy Casts None seen (NONE SEEN) Urine Red Blood Cell Casts None seen (NONE SEEN) Urine White Blood Cell Casts None seen (NONE SEEN) Urine Mucus None seen (None Seen) Urine Trichomonas None seen (NONE SEEN) Urine Yeast None (NONE SEEN) Urinalysis Comment Urine Culture Reflexed Indicated Hold Purple Top Tube Received (Received) Band Neutrophils % 3% (1-5) Metamyelocytes % 2% (0-0) Myelocytes % 2% (0-0) Result Diagram: 03/09/16 0604 03/09/16 0604 X-Rays, CTs and MRIs US EXTREMITY SONOGRAM LIMITED, CLASSIFIED ADVERTISING MANAGER IMPRESSION: Complex area of heteroechogenicity within the left side the area of concern. Finding is consistent with history of abscess. Other etiologies can include hematoma. Dictated by: Nicole Orlando M.D. on 03/08/2016 at 20:01 Approved by: Nicole Orlando M.D. on 03/08/2016 at 20:01 ECG Interpretation ECG Interpretation: Tachycardia, Rate 100 Time: 21:59 Interpreted by: ED physician Normal ECG Interpretation: No acute ischemic changes X-Ray Chest Interpretation Chest Xray Interpretation: Impression: No acute process. View: Portable Interpretation / Wet Read by: Wet read ED physician Assessment & Plan Patient is a 66 year old male with a history of diabetes mellitus, hypertension , osteomyelitis, and recurrent abscess to his left upper thigh who presents to the ED for evaluation of large left thigh abscess with purulent drainage that began yesterday. #Abscess with Purulent Drainage, Left anterior thigh, POA This is a recurrent problem for this patient. He is urgently taken by General Surgery for I&D. Upon further questioning, patient reports that he continues to inject his Insulin into his thighs. With his recurrent infections, will educate patient to inject in a new area. Wound care consult pending, Wound was left open for drainage. Abscess culture pending, Consider antibiotics if drainage insufficient for treatment. Gram stain shows many WBCs and some gram-positive cocci Advance diet as tolerated after surgery IV Dilaudid prn pain We will get MRI with contrast of left femur to further investigate particularly in light of such a high sedimentation rate Dr. Melquiades Berrios infectious disease was consult regarding this patient #Chronic Macrocytic Anemia, POA We do not have any of his previous records, but he does report chronic anemia although he is unsure why and denies history of alcoholism Hgb 6.9 on admit, will transfuse 2 units after surgery Monitor H&H Patient notes that he had been diagnosed with anemia before did get blood transfusions previously as mentioned in above in subjective section. We will get old records to further review We will check iron studies, B12 folate and reticulocyte count. We will try to have the lab add those to the labs that were obtained prior to his transfusion. Guaiac stools #Chronic Atrial fibrillation, POA Per history, patient has chronic afib, only on full dose Aspirin. Continue Aspirin 325mg daily Continue Diltiazem ER daily #Asymptomatic Bacteriuria, POA Pyuria noted on UA. Will await patient's culture since he does not complain of any symptoms. There was a significant amount of epithelial cells in the specimen so we will reorder clean catch urine for micro and culture if indicated #Insulin Dependent DM2, POA Per med rec, patient injects Levemir 30 units QAM and Lispro S/S Will place patient on Lispro Medium correctional scale, Will continue Metformin after surgery Diabetic education recommended #Hypertension, POA Continue patient's home medications #Hyperlipidemia, POA Continue Statin #Mood Disorder, POA Continue Effexor and Mirtazapine, He reports this is for his depression #BPH, POA Continue Flomax VTE Prophylaxis: Sub-Q Heparin (Unfractionated) Resuscitation Status: CPR: Attempt Resuscitation Time spent 45 minutes Melba Burton MD Mar 09, 2016 12:29
[2016-03-09 12:30] LABS: Unsaturated Iron Binding 111.6 ug/dL
[2016-03-09] MEDS ORDERED: 0.9% Sodium Chloride 100 ML ONE (13:14)
[2016-03-09] MEDS: Piperacillin-Tazo 3.375 Gm Inj 3.375 GM in Dextrose 5% Minibag Plus 50 ML IV SCH ×2 (15:56→15:58)
--- NOTE | 2016-03-09 17:17 | CONS ---
[address] [address] CONSULTATION REPORT PATIENT: CAPRI SALINAS : 1950 MR#: [id number] ADMIT: 03/08/2016 JOB ID: [id number] DATE OF SERVICE: 03/09/[address] Melba Burton for this consult. REASON FOR CONSULT: Perirectal and thigh abscesses. HISTORY OF PRESENT ILLNESS: The patient is a 66-year-old gentleman who has underlying diabetes, and was in his usual state of excellent health until this summer when he retired from his job at the [employer] where he had been keeping [employer] for almost 40 years. Shortly thereafter, he developed an extensive perirectal abscess for which he was hospitalized at [facility] in [place]. He reported that hospitalization involved multiple surgeries and several weeks on an inpatient basis in the hospital. At the conclusion of that, he was still having drainage from his perirectal area and was being treated with IV antibiotics. He was transferred to one of the [facility] here in [facility]. Subsequent to that, he developed a thigh abscess which required debridement and drainage and eventually a 2nd surgery was required for thigh abscess at [facility] in January. Following this episode, the patient had initially had a drain placed in his left thigh and received additional antibiotics with IV antibiotics through [facility] before the antibiotics were stopped and the drains were pulled. Following the conclusion of the pulling of the last drain, the patient was having ongoing spontaneous drainage from his left thigh as well as from two areas around his left buttock. This drainage looked relatively uninfected and he felt reasonably well though he was still confined to a rehab facility and was unable to ambulate without the assistance of a walker. In the days leading up to this admission, the patient was not receiving any antibiotics and was living at the longterm facility. He reports that just prior to yesterday's admission that the spontaneous drainage from the left thigh wound changed color and had become more of a chunky milky consistency which was of great concern to him. The volume also increased quite a bit over baseline and, for that reason, she sought evaluation and was admitted here yesterday. The patient was then taken to the operating room just past midnight by Dr. Ha of Surgery to clean out a very extensive left thigh abscess. Considerable turbid fluid was obtained as well as some gelatinous material. It was unclear to Dr. Ha at the time of surgery whether or not this thigh abscess connected in fact to his still draining perirectal abscess area, but it seemed likely apparently to Dr. Ha that it did though he was not able to completely explore it during the surgery. The patient did not have any associated fevers, chills, or sweats with this nor did he have swelling or tenderness in the left thigh but rather just noticed a change in the volume and consistency of the spontaneous drainage. Since yesterday, the patient has been in the hospital here receiving vancomycin and Zosyn as empiric antibiotics and he has undergone the extensive debridement of his left thigh. The patient states he was seen by numerous specialists during his multiple stays at [facility], but he was unclear as to what final diagnosis might have been established behind his perirectal and left thigh abscesses. He notes that his diabetes has actually been in fairly good control and he has never had any similar such infection. He also specifically denies any history compatible with inflammatory bowel disease and has no family history of Crohn's or ulcerative colitis. PAST MEDICAL HISTORY: 1. Type 2 diabetes. 2. Benign prostatic hypertrophy. 3. History of cavitary lung lesion. 4. AFib. 5. History of left femur osteomyelitis. 6. History of recurrent perirectal and left thigh abscess in the current time. 7. Hyperlipidemia. SOCIAL HISTORY: The patient [place], [place]. 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 He is a non-cigarette smoker and only a very occasional drinker. FAMILY HISTORY: Negative for inflammatory bowel disease. Negative for TB. Negative for recurrent abscess. REVIEW OF SYSTEMS: Was done. The patient has no significant headache, visual change, sore throat, sores in the mouth, cough, shortness of breath, chest pain, nausea, vomiting, or diarrhea. He has had the draining wounds around his left rectum as well as his left thigh which culminated in yesterday's surgery. PHYSICAL EXAMINATION: Reveals an afebrile gentleman, temperature 36.9, pulse 90, respiratory rate 28, blood pressure 100/64. He is saturating well on 96%. Examination of the head reveals no notable abnormalities. Mental status is normal. Eyes without conjunctivitis or scleral icterus. Oral cavity without thrush or hairy leukoplakia. No pharyngitis. Neck without adenopathy. Lungs: Clear to auscultation. Cardiac: Tones regular rate and rhythm on cardiac exam. Abdomen: Basically soft and nontender. No organomegaly is appreciated. No ascites. No suprapubic fullness is noted. No abnormalities of the penis or scrotum are noted. The patient's left thigh is wrapped in a huge postoperative dressing which was just applied earlier today, and we did not remove that dressing. There is some blood leaking through it, however, and so we did not turn the patient to see his perirectal draining abscesses because of the ongoing issues with his left thigh. The left leg distal to the area of incision and bandage is benign- appearing. The entire right lower extremity is benign-appearing. Patient is neurologically intact but as he notes he is very weak in the lower extremities and has been since the onset of all these surgeries and abscesses. No skin rash or abnormality is noted. LABORATORIES: Include a white count of 22,600, platelet count 143,000. There are 2% metamyelocytes, 2% myelocytes. Sed rate of 140. Creatinine is 1.29, and that is increased from 1.16 yesterday already. Liver function tests normal. Albumin 2.9 on admission. Urinalysis has greater than 50 white cells, interestingly. Cultures of the urine are negative at 24 hours. The abscess drainage fluid has many polys and a few gram-positive cocci. Blood cultures are pending. Imaging of the chest shows no acute cardiopulmonary disease. In reviewing some old cultures, he does have a culture here from the opposite right leg from two years ago which grew group B strep and MSSA. Otherwise, we have nothing of great interest in the micro results from before. IMPRESSION: This is quite an unusual case of a diabetic gentleman who was reportedly in excellent health with fairly well-controlled diabetes until summer when he developed a left perirectal abscess which required a very long hospitalization at [facility] with extensive debridement, drainage and IV antibiotics. He then went to the [facility] and went on to develop a left thigh abscess which was drained, then recurred and which required another long drainage at [facility] in January with additional placement of drains, debridement and long IV antibiotics still in a longterm facility. Most recently, his drains were pulled and he was having some degree of spontaneous drainage from two sites in the perirectal area and one site in the thigh. Over the past 48 hours or so, this got much worse with thicker, more purulent drainage from the left thigh which led to his admission and other extensive debridement in the left thigh with the discovery of a recurrent abscess. The management here is fairly straightforward in that the patient has had the definitive treatment which is debridement and placement of the drains and is currently receiving IV antibiotics with vancomycin and Zosyn while we await cultures. The bigger issue is why he keeps getting recurrent abscesses. I agree with plans to check a hemoglobin A1c and see how well-controlled his diabetes is; clearly out of control diabetes could predispose to such recurrent abscesses. Another concern is he could have a bowel fistula on the basis of inflammatory bowel disease, ischemic colitis or perhaps some other trauma or perhaps some other process which is allowing outflow of bowel contents causing a perirectal abscess with tracking into the thigh. Another set of possibilities would involve the possibilities of profound immunosuppression such as immunoglobulin or complement deficiency or human immunodeficiency virus infection. RECOMMENDATIONS: 1. I agree with vancomycin and Zosyn for now. 2. Will check HIV, hep C, quantitative immunoglobulins, CH50 for complement activity and a CD4/CD8 ratio. 3. Will need all the records from [facility] or at least the discharge summaries and micro results and infectious disease consults from his recent admissions there. 4. MRSA screen of the nose would be helpful and we will order that tonight. NAKIA
[2016-03-09] MEDS ORDERED: PYRIDOXINE PO SCH (21:00)
[2016-03-09] MEDS ORDERED: MELATONIN PO SCH (21:00)
--- NOTE | 2016-03-09 22:54 | DRSVH ---
PROCEDURE: MRI FEMUR LEFT WITH AND WITHOUT CONTRAST ([id number]) INDICATIONS: recurrent left thigh abscess TECHNIQUE: Noncontrast coronal T1 spin echo and STIR, sagittal T1 spin echo with fat saturation and STIR, axial T1 spin echo and T2 fast spin echo with fat saturation. After the administration of contrast, axial/ sagittal/coronal T1 spin echo with fat saturation through the left thigh. COMPARISON: None. FINDINGS: Image quality: Limited by patient motion. Bones: Increased T2 signal and postcontrast enhancement noted in the superior margin of the greater trochanter of the left femur. There is cortical destruction identified in the superior margin of the greater trochanter of the left femur compatible with osteomyelitis Increased T2 signal and contrast -enhancement is noted in the left ischial tuberosity. The left common hamstring tendon is avulsed. No erosive changes are identified in the left ischial tuberosity. Increased T2 signal and contrast-e nhancement involving the left ischial tuberosity may represent reactive change associated with hamstr ing avulsion or early osteomyelitis. Soft tissues: Extensive edema is noted throughout the subcutaneous soft tissues of the left thigh mo st compatible with infectious cellulitis. Extensive edema is noted throughout the musculature of the left thigh compatible with infectious myositis and superficial/deep fasciitis. No definite evidence of necrotizing fasciitis. Multiple fluid collections with peripheral enhancement are noted in the le ft thigh. There is a 1.0 x 3.5 x 9.0 cm in fluid collection in the soft tissues posterior to the lef t ischial tuberosity (series 11, image 11; series 10, image 7). Fluid is noted in the left trochante gladys bursa. The left trochanteric bursa wall is thickened and demonstrates postcontrast enhancement. Left trochanteric bursa measures 6.1 x 1.2 x 5.8 cm (series 9, image 10; series 11, images 7-10). F indings suspicious for infectious left trochanteric bursitis. Small fluid collection is noted in the vastus lateralis muscle (see series 11, images 15-28. Post procedure changes compatible with I&D an d drainage placement are noted in the region of the fluid collection and the vastus lateralis. Fluid collection with enhancing periphery is noted in the biceps femoris muscle that measures 2.1 x 2.0 x 2.7 cm (series 11 image 19; series 9 image 8). Small fluid collection with enhancing periphery is no [place] in the left obturator muscle that measures approximately 0.4 x 1.8 cm (series 11, image 14). Lef t sciatic nerve is enlarged with increased internal signal and postcontrast enhancement (series 11, i mages 15-20) compatible with nonspecific neuritis. IMPRESSION: 1. Osteomyelitis involving the superior tip of the greater trochanter of the left femur. 2. Nonspecific subchondral marrow edema involving the left ischial tuberosity which could represent reactive change associated with avulsed left common hamstring tendon or early osteomyelitis. 3. Multiple abscesses involving the left trochanteric bursa, within the left biceps femoris muscle, within the left obturator muscle and in the left vastus lateralis muscle. I&D procedure with drain p lacement is noted in the left vastus lateralis musculature. 4. Extensive left thigh cellulitis, myositis and fasciitis. No definite evidence of necrotizing fas ciitis identified in the current study. 5. Nonspecific left sciatic neuritis. Dictated by: Deana Briseno MD, PhD on 03/09/2016 at 22:52 Approved by: Deana Briseno MD, PhD on 03/09/2016 at 22:52
[2016-03-10] MEDS: Heparin 5,000 Unit/mL Inj SUBQ SCH ×3 (00:53→16:47)
[2016-03-10] MEDS: Piperacillin-Tazo 3.375 Gm Inj 3.375 GM in Dextrose 5% Minibag Plus 50 ML IV SCH ×3 (03:10→19:54)
[2016-03-10 05:03] VITALS: BP 126/67; PULSE 78; RESP 17; O2SAT 95
--- NOTE | 2016-03-10 07:28 | PCM.CONPHA ---
Subjective Date of Service: Mar 09, 2016 left thigh abscess Reason for Pharmacy Consult: Vancomycin Dosing Objective Vital Signs Date Time Temp Pulse Resp B/P Pulse Ox O2 Delivery O2 Flow Rate FiO2 03/10/16 05:03 36.9 78 17 126/67 95 Room Air 03/09/16 21:21 36.9 77 18 113/68 96 Room Air 03/09/16 17:13 36.7 79 18 114/62 97 Room Air 03/09/16 08:59 36.9 28 100/64 96 Room Air Intake and Output 03/08/16 03/09/16 03/10/16 00:00 00:00 00:00 Intake Total 1250 ml 1072 ml Output Total 270 ml Balance 1250 ml 802 ml Weight (Kilograms): 72.600 Height (Feet): 5 Height (Inches): 7.00 Test 03/08/16 22:05 03/08/16 22:17 03/08/16 22:52 03/09/16 06:04 Prothrombin Time 13.4sec (8.1-12.5) Prothromb Time International Ratio 1.25ratio Activated Partial Thromboplast Time 32.3sec (22.8-33.0) Lactic Acid Level 1.5mmol/L (0.4-2.0) Phosphorus Level 2.6mg/dL (2.5-4.9) Magnesium Level 1.9mg/dL (1.6-2.6) Procalcitonin 1.44ng/mL (See Comment) Urine Color Dark yellow (YELLOW) Urine Appearance Cloudy (CLEAR,HAZY) Urine pH 5.5 (5.0-8.0) Urine Specific [place] 1.020 (1.003-1.035) Urine Protein 30mg/dL (NEG,TRACE) Urine Glucose (UA) Negativemg/dL (NEGATIVE) Urine Ketones Negativemg/dL (NEGATIVE) Urine Occult Blood Small (NEGATIVE) Urine Nitrite Negative (NEGATIVE) Urine Bilirubin Negative (NEGATIVE) Urine Urobilinogen Normalmg/dL (NORMAL) Urine Leukocyte Esterase Large (NEGATIVE) Urine RBC 0-2/hpf (0-2) Urine WBC >50/hpf (0-5) Urine Epithelial Cells Occasional/hpf (NONE-MOD) Urine Crystals None seen (NONE SEEN) Urine Bacteria None/hpf (NONE-FEW) Urine Hyaline Casts None/lpf (NONE) Urine Granular Casts None seen (NONE SEEN) Urine Waxy Casts None seen (NONE SEEN) Urine Red Blood Cell Casts None seen (NONE SEEN) Urine White Blood Cell Casts None seen (NONE SEEN) Urine Mucus None seen (None Seen) Urine Trichomonas None seen (NONE SEEN) Urine Yeast None (NONE SEEN) Urinalysis Comment Urine Culture Reflexed Indicated Hold Purple Top Tube Received (Received) White Blood Count 22.6th/mm3 (3.8-10.1) Red Blood Count 2.03mil/mm3 (4.40-5.80) Hemoglobin 7.0g/dL (13.8-17.2) Hematocrit 22.0% (41.0-50.0) Mean Corpuscular Volume 108.4fL (81-100) Mean Corpuscular Hemoglobin 34.5pg (27.0-35.0) Mean Corpuscular Hemoglobin Concent 31.8% (32.0-37.0) Red Cell Distribution Width % (12.3-15.4) Platelet Count 143bil/L (150-400) Neutrophils (%) (Auto) 65% (40-74) Lymphocytes (%) (Auto) 5% (14-46) Monocytes (%) (Auto) 20% (4-12) Eosinophils (%) (Auto) 1% (0-5) Basophils (%) (Auto) 0% (0-3) Band Neutrophils % 3% (1-5) Metamyelocytes % 2% (0-0) Myelocytes % 2% (0-0) Erythrocyte Sedimentation Rate > 140mm/hr (0-30) Sodium Level 133mEq/L (134-144) Potassium Level 3.9mEq/L (3.5-5.2) Chloride Level 98mEq/L (97-108) Carbon Dioxide Level 20mmol/L (18-29) Blood Urea Nitrogen 21mg/dL (8-27) Creatinine 1.29mg/dL (0.76-1.27) Estimat Glomerular Filtration Rate 59mL/min (>59) Glucose Level 294mg/dL (60-99) Hemoglobin A1c 6.4% (4.8-5.6) Calcium Level 7.9mg/dL (8.5-10.1) Iron Level 59ug/dL (35-150) Total Iron Binding Capacity 171ug/dL (250-450) Percent Iron Saturation 35%sat (15-50) Unsaturated Iron Binding 111.6ug/dL Total Bilirubin 0.4mg/dL (0.0-1.2) Aspartate Amino Transf (AST/SGOT) 12U/L (0-50) Alanine Aminotransferase (ALT/SGPT) 6U/L (0-44) Alkaline Phosphatase 66U/L (25-160) Total Protein 5.7g/dL (6.4-8.4) Albumin 2.8g/dL (3.4-5.0) Vitamin B12 Level 601pg/mL (211-946) Folate 5.1ng/mL (>3.0) Test 03/09/16 12:55 Reticulocyte Count,Calculated 2.4% (0.6-2.6) Assessment/Plan Assessment/Plan Patient receiving vancomycin for treatment of abscess. Other antibiotics: Zosyn. Patient received initial dose of vancomycin 1250 mg in ED on 03/08/15 @2215. SCr is trending up so will dose conservatively (SCr, 1.29, CrCl ~57 mL/min). Loading dose: vancomycin 1250 mg x1 (received in ED). Maintenance dose: vancomycin 750 mg Q12H @1300,2300. Trough: ordered for 03/10/15 @1230 (30 min prior to 4th dose). Pharmacy to continue to monitor and adjust dose. Thank you, Rhonda Grove Pharmacist Rhonda Grove Mar 10, 2016 07:28
--- NOTE | 2016-03-10 08:13 | PROG NOTE ---
[address] [address] PROGRESS NOTE PATIENT: CAPRI SALINAS : 1950 MR#: [id number] ADMIT: 03/08/2016 JOB ID: [id number] DATE: 03/10/2016 SUBJECTIVE: Capri was seen in followup. Today he feels pretty good. He did not take a pain pill overnight. He does complain of a lot of left leg weakness. OBJECTIVE: Temperature 36.9, pulse 78, blood pressure 126/67, saturation 95% on room air. In general, he is resting in bed in no acute distress. Chest is clear. Heart: Regular rate and rhythm. No murmurs. Extremities: The left thigh is soft with no erythema. The dressings were taken down and the [place] drains in the left lateral thigh are intact with some purulent drainage. He is minimally tender. The dressings were replaced with dry ABD pads and Kerlix wrap. LABORATORIES: White count yesterday at 22.6, hematocrit 22.0. IMAGING: MRI of the left femur was obtained last night. This shows osteomyelitis involving the left greater trochanter. There is marrow edema involving the left ischial tuberosity which could be reactive, avulsion of the left hamstring tendon, osteomyelitis. There were multiple small abscesses involving the left trochanteric bursa, within the left biceps femoral sheath muscle, left obturator muscle, left vastus lateralis muscle. There is extensive left thigh cellulitis, myositis and fasciitis. There is nonspecific left sciatic neuritis. ASSESSMENT AND PLAN: A 66-year-old man, status post incision and drainage of a 30 cm left lateral thigh abscess. Findings on MRI suggest osteomyelitis but also multiple deep undrained abscesses around the left femur, left ischial tuberosity, left trochanteric bursa. Gram stain from his operation shows gram-positive cocci, but the culture and sensitivities are pending. Based on the MRI findings, I think that Orthopedic surgery consultation is warranted. The remaining areas of infection are not amenable to treatment by a general surgeon. With certain osteomyelitis, it looks like he will need to get a six week course of IV antibiotics. Clinically there is no evidence of necrotizing fasciitis. While I am somewhat suspicious that the original infectious insult could have originated from his perirectal abscess, at this point, I am not clinically suspicious of ongoing connection based on MRI findings. The Wound Healing specialist and myself yesterday had been to potentially convert to a Wound VAC today and remove his David drains. For the time being, I would like to wait and get input from Orthopedic surgery prior to making that transition, in case he needs additional surgical debridement and exploration.
[2016-03-10] MEDS: Vancomycin Dose per Pharmacist XX SCH (08:30)
[2016-03-10 08:51] VITALS: BP 119/71; PULSE 79; RESP 16; O2SAT 93
[2016-03-10 08:52] LABS: Mean Corpuscular Hemoglobin 33.3 pg (27.0-35.0); Mean Corpuscular Volume 105.4 fL (81-100); Platelet Count 152 bil/L (150-400)
[2016-03-10] MEDS: Diltiazem CD 120 mg ER24 Capsule PO SCH (09:04)
[2016-03-10] MEDS: Ascorbic Acid 500 mg Tablet PO SCH (09:04)
[2016-03-10] MEDS: Venlafaxine XR 75 mg ER24 Capsule PO SCH (09:04)
[2016-03-10] MEDS: Insulin LISPRO 300 Unit/3 mL Inj SUBQ SCH ×4 (09:14→21:53)
[2016-03-10] MEDS: Insulin GLARgine 100 Unit/mL Syringe SUBQ SCH (09:15)
[2016-03-10 09:31] LABS: BASOPHILS % (AUTO) 0 % (0-3); EOSINOPHILS % (AUTO) 1 % (0-5); MONOCYTES % (AUTO) 17 % (4-12); NEUTROPHILS % (AUTO) 60 % (40-74)
[2016-03-10] MEDS ORDERED: Vancomycin Serum Trough XX ONE (12:30)
[2016-03-10 12:45] VITALS: BP 120/68; PULSE 85; RESP 14; O2SAT 93
--- NOTE | 2016-03-10 13:38 | PROG NOTE ---
[address] [address] PROGRESS NOTE PATIENT: CAPRI SALINAS : 1950 MR#: [id number] ADMIT: 03/08/2016 JOB ID: [id number] DATE: 03/10/2016 SUBJECTIVE: This is a brief progress note. I spoke with Dr. Sukhdev Sandoval to request Orthopedic surgery consultation today. After description to her of the findings of the MRI of the left thigh and femur from yesterday, Dr. Sandoval stated that the complexity and location of residual abscess and fluid collections are not amenable to surgical treatment by her. She recommended transfer to a higher level of care where an orthopedic surgeon may be more comfortable operating deep around the pelvis, obturator muscles, piriformis muscle, etc. I spoke with Dr. Decker from the hospitalist service myself and recommended transfer.
--- NOTE | 2016-03-10 15:28 | PROG NOTE ---
[address] [address] PROGRESS NOTE PATIENT: CAPRI SALINAS : 1950 MR#: [id number] ADMIT: 03/08/2016 JOB ID: [id number] DATE: 03/10/2016 INFECTIOUS DISEASE FOLLOW UP NOTE: REASON FOR FOLLOWUP: Extensive left pelvis and thigh infection with evidence of osteomyelitis. INTERVAL HISTORY: Recall this is a 66-year-old gentleman we saw as an initial consultation yesterday. At that time, we were concerned about the progression and extent of his infection. Recall this is a patient who started off last summer with a perirectal abscess which was treated at [place] and then developed a thigh abscess which was also treated with extensive debridement at [place] and then eventually ended up at a local [facility] facility. He was readmitted this week with increasing drainage from some spontaneous and persistent draining sinuses from his left thigh as well as from his perirectal area. He underwent extensive debridement by Dr. Ha for a left thigh abscess and we were asked to comment regarding appropriate antibiotic choices and management. At the time we saw the patient yesterday, there was discussion about an MRI scan of the thigh which we strongly recommended to better define the extent of his infection. That scan has been done and it shows that there is evidence of osteomyelitis with cortical destruction involving the greater trochanter of the femur as well as possible ischial osteomyelitis and extensive abscesses present widely throughout the area. Orthopedics has been contacted to become involved in this case as well. This afternoon the patient has no fever, no chills. No pulmonary or GI symptoms. He has expected pain in the area where his I and D was done and is drains are present. He is wondering what the next step will be. PHYSICAL EXAMINATION: Reveals a calm gentleman, lying supine in his hospital bed. Temperature 36.8, pulse 85, respiratory rate 14, blood pressure 120/80, saturating 93% on room air. Oral cavity without thrush. Lungs clear. Cardiac tones without change. Abdomen: Soft and nontender. He has a long dressing present over his left thigh which we did not remove but we discussed it with the wound management team and they report there is a series of three debriding incisions with drains present, which do not appear grossly infected at this point. LABORATORIES: Labs include a white count which has dropped from 22,000 to 16,000. He has pronounced left shift with 7% myelocytes, sed rate over 140. Creatinine 1.15, which is actually improved from yesterday. LFTs basically normal. Immunoglobulin levels, total complement and CD4 count are pending. HIV and hep C pending. Micro studies include negative blood cultures. The culture from the abscess currently is read as insufficient growth which typically mean something is growing but not enough to fully characterize. The MRI scan which was obtained late last night is of great interest. It shows osteomyelitis involving the greater trochanter of the femur on the left, some edema involving the left ischial tuberosity which could represent osteo as well, multiple abscesses involving the left trochanteric bursa, the left biceps femoris muscle, the left obturator muscle and the left vastus lateralis muscle. There is extensive thigh cellulitis, myositis and fasciitis but no evidence of necrotizing fasciitis. IMPRESSION: This unfortunate gentleman has had an extraordinary string of infections starting off with a perirectal abscess some seven months ago. There obviously must be some connection between his perirectal/perianal processes and his multiple thigh hip infections. At this point, it would appear the patient needs a combined surgical orthopedic approach to his multiple infections which likely need debridement and drainage. Orthopedics has been contacted but I have heard at least through the [facility] that they are recommending transfer perhaps back to [facility] where more orthopedic expertise is available. It is noted in the chart that this surgery which is being contemplated would involve a great deal of work with the pelvis, obturator muscles, piriformis and so forth, and for that reason, a transfer to a higher level of care seems indicated. RECOMMENDATIONS: 1. Will continue with vanc and Zosyn until we have final identification of the organisms present. 2. Once we have back negative micro data in terms of MRSA, we can go ahead and stop the vanco, but for this point, it seems reasonable to continue. 3. Will order a MRSA screen at this point as well.
--- NOTE | 2016-03-10 15:52 | PCM.PNMED ---
Subjective Date of Service Mar 10, 2016 Subjective Patient is a 66 year old male with a history of diabetes mellitus, hypertension , osteomyelitis, and recurrent abscess to his left upper thigh who presents to the ED for evaluation of large left thigh abscess with purulent drainage that began yesterday. Hospital day 2. Overnight: Patient was stable overnight and did not require any pain medication. No acute events. Today: Patient lying comfortably in bed. Denies any significant pain does note weakness in his left leg. Patient denies any shortness of breath, chest pain, nausea, vomiting, or diarrhea. Discussed with patient the need to transfer for higher level of care. Remaining review of systems negative. Exam Vital Signs Vital Sign - Last Date Time Temp Pulse Resp B/P Pulse Ox O2 Delivery O2 Flow Rate FiO2 03/10/16 12:45 36.8 85 14 120/68 93 Room Air 03/09/16 00:50 2 Intake and Output 03/09/16 03/09/16 03/10/16 Cumulative From/Thru 15:00 23:00 07:00 03/08/16 00:33 - 03/10/16 06:20 Intake Total 373 ml 788 ml 3110 ml Output Total 600 ml 870 ml Balance 373 ml 188 ml 2240 ml Intake Oral 500 ml 854 ml IV Total 73 ml 288 ml 1956 ml Packed Cells 300 ml 300 ml Output Urine Total 600 ml 850 ml Estimated Blood Loss 20 ml # Bowel Movements 0 Exam Constitutional: Middle-aged man who appears comfortable Head: Normocephalic atraumatic Eyes: PERRLA DC EOMI Mouth: No lesions Chest: Clear to auscultation Cor: Regular rate and rhythm S1-S2 without murmur Abdomen: Soft nontender bowel sounds present Extremities: Right lower extremity has some old scarring areas in the anterior streeter same at the left. Left upper thigh with wound in place and clean dry and intact. Neuro: Alert and oriented 3, motor strength is intact bilaterally Lab and Diagnostics Result Diagram: 03/10/1681903/10/16819 X-Rays, CTs and MRIs MRI FEMUR LEFT WITH AND WITHOUT CONTRAST IMPRESSION: 1. Osteomyelitis involving the superior tip of the greater trochanter of the left femur. 2. Nonspecific subchondral marrow edema involving the left ischial tuberosity which could represent reactive change associated with avulsed left common hamstring tendon or early osteomyelitis. 3. Multiple abscesses involving the left trochanteric bursa, within the left biceps femoris muscle, within the left obturator muscle and in the left vastus lateralis muscle. I&D procedure with drain placement is noted in the left vastus lateralis musculature. 4. Extensive left thigh cellulitis, myositis and fasciitis. No definite evidence of necrotizing fasciitis identified in the current study. 5. Nonspecific left sciatic neuritis. Dictated by: Deana Briseno MD, PhD on 03/09/2016 at 22:52 Approved by: Deana Briseno MD, PhD on 03/09/2016 at 22:52 X-RAY CHEST ONE VIEW, PORTABLE IMPRESSION: No acute cardiopulmonary disease. Dictated by: Toney Wellington RRA Interpreted: Deana Briseno MD on 03/09/2016 at 9:50 Transcribed by: JOSE on 03/09/2016 at 9:50 Approved by: Deana Briseno MD, PhD on 03/09/2016 at 16:34 Assessment & Plan Patient is a 66 year old male with a history of diabetes mellitus, hypertension , osteomyelitis, and recurrent abscess to his left upper thigh who presents to the ED for evaluation of large left thigh abscess with purulent drainage that began yesterday. Hospital day 2. 1. Abscess with Purulent Drainage, Left anterior thigh, POA This is a recurrent problem for this patient. He was urgently taken by General Surgery for I&D on 03/09. Upon further questioning, patient reports that he continues to inject his Insulin into his thighs. With his recurrent infections, will educate patient to inject in a new area. Wound care following. Abscess culture pending, Consider antibiotics if drainage insufficient for treatment. Gram stain shows many WBCs and some gram-positive cocci Advance diet as tolerated after surgery IV Dilaudid prn pain Antibiotics: Vancomycin and Zosyn per ID MRI results as above showed osteomyelitis. Orthopedics consulted. Recommend transfer. [facility] accepts but no beds currently available. Dr. Melquiades Berrios infectious disease was consult regarding this patient 2. Chronic Macrocytic Anemia, POA We do not have any of his previous records, but he does report chronic anemia although he is unsure why and denies history of alcoholism Hgb 6.9 on admit, transfused 2 units H&H 8.0 and 25.3 this morning Patient notes that he had been diagnosed with anemia before did get blood transfusions previously as mentioned in above in subjective section. We will get old records to further review We will check iron studies, B12 folate and reticulocyte count. We will try to have the lab add those to the labs that were obtained prior to his transfusion. Guaiac stools 3. Chronic Atrial fibrillation, POA Per history, patient has chronic afib, only on full dose Aspirin. Continue Aspirin 325mg daily Continue Diltiazem ER daily 4. Asymptomatic Bacteriuria, POA Pyuria noted on UA. Will await patient's culture since he does not complain of any symptoms. There was a significant amount of epithelial cells in the specimen so we will reorder clean catch urine for micro and culture if indicated 5. Insulin Dependent DM2, POA Per med rec, patient injects Levemir 30 units QAM and Lispro S/S Will place patient on Lispro Medium correctional scale, Will continue Metformin after surgery Diabetic education recommended 6. Hypertension, POA Continue patient's home medications 7. Hyperlipidemia, POA Continue Statin 8. Mood Disorder, POA Continue Effexor and Mirtazapine, He reports this is for his depression 9. BPH, POA Continue Flomax Disposition: Patient will be transferred to [facility] but currently no beds available. VTE Prophylaxis: Sub-Q Heparin (Unfractionated) Resuscitation Status: CPR: Attempt Resuscitation Attending Statement The patient was seen and examined together with Resident/House-staff on 03/10/16 and I agree with the history, exam and plan as outlined in the note above. I contact [facility] and was told no beds available for transfer today. I also contacted [facility] and after some back and forth discussions with their ortho and our ortho consult I have been notified by [facility] transfer that they do not have any accepting physicians over there and recommend trying to transfer the patient to [facility] if possible. GISSELL GONSALEZ DO Mar 10, 2016 15:52 Cholo Decker Mar 10, 2016 17:37
[2016-03-10 18:05] VITALS: BP 146/82; PULSE 77; RESP 18; O2SAT 99
[2016-03-10 19:56] VITALS: BP 123/72; PULSE 74; RESP 17; O2SAT 99
[2016-03-11] MEDS: Heparin 5,000 Unit/mL Inj SUBQ SCH ×3 (00:51→15:34)
[2016-03-11] MEDS: Piperacillin-Tazo 3.375 Gm Inj 3.375 GM in Dextrose 5% Minibag Plus 50 ML IV SCH ×3 (02:59→19:49)
[2016-03-11 04:30] VITALS: BP 134/80; PULSE 87; RESP 18; O2SAT 98
[2016-03-11] MEDS: Insulin LISPRO 300 Unit/3 mL Inj SUBQ SCH ×4 (08:00→21:38)
[2016-03-11 08:05] LABS: Mean Corpuscular Hemoglobin 33.5 pg (27.0-35.0); Mean Corpuscular Volume 105.6 fL (81-100); Platelet Count 180 bil/L (150-400)
[2016-03-11] MEDS: Insulin GLARgine 100 Unit/mL Syringe SUBQ SCH (08:15)
[2016-03-11 08:26] VITALS: BP 138/75; PULSE 78
[2016-03-11] MEDS: Diltiazem CD 120 mg ER24 Capsule PO SCH (08:27)
[2016-03-11] MEDS: Ascorbic Acid 500 mg Tablet PO SCH (08:27)
[2016-03-11] MEDS: Venlafaxine XR 75 mg ER24 Capsule PO SCH (08:28)
[2016-03-11] MEDS: Vancomycin Dose per Pharmacist XX SCH (08:30)
[2016-03-11 08:39] LABS: BASOPHILS % (AUTO) 1 % (0-3); EOSINOPHILS % (AUTO) 1 % (0-5); MONOCYTES % (AUTO) 18 % (4-12); NEUTROPHILS % (AUTO) 55 % (40-74)
[2016-03-11 12:06] VITALS: BP 147/69; PULSE 79; RESP 18; O2SAT 98
--- NOTE | 2016-03-11 14:15 | PCM.PNMED ---
Subjective Date of Service Mar 11, 2016 Subjective Patient says pain is manageable Onboard with the plan, awaiting a bed at [facility], [place] Exam Vital Signs Vital Sign - Last Date Time Temp Pulse Resp B/P Pulse Ox O2 Delivery O2 Flow Rate FiO2 03/11/16 12:06 36.8 79 18 147/69 98 Room Air 03/09/16 00:50 2 Intake and Output 03/10/16 03/10/16 03/11/16 Cumulative From/Thru 15:00 23:00 07:00 03/08/16 00:33 - 03/11/16 06:50 Intake Total 1093 ml 400 ml 4603 ml Output Total 1425 ml 1820 ml 4115 ml Balance -332 ml -1420 ml 488 ml Intake Oral 720 ml 400 ml 1974 ml IV Total 373 ml 2329 ml Packed Cells 300 ml Output Urine Total 1425 ml 1820 ml 4095 ml Estimated Blood Loss 20 ml # Bowel Movements 0 Exam NAD, comfortably laying down on the bed no JVD, MMM, no LAD RRR, nl s1, s2 no mrg CTAB, no w,c S,ND,NT,normoactive BS+ EXT - left lateral hip/thigh sterilely dressed , pulses 2/2 distally IVs and Medications Medications Reviewed: Medications were reviewed in detail Lab and Diagnostics Result Diagram: 03/11/16 0653 03/11/16 0653 X-Rays, CTs and MRIs MRI FEMUR LEFT WITH AND WITHOUT CONTRAST IMPRESSION: 1. Osteomyelitis involving the superior tip of the greater trochanter of the left femur. 2. Nonspecific subchondral marrow edema involving the left ischial tuberosity which could represent reactive change associated with avulsed left common hamstring tendon or early osteomyelitis. 3. Multiple abscesses involving the left trochanteric bursa, within the left biceps femoris muscle, within the left obturator muscle and in the left vastus lateralis muscle. I&D procedure with drain placement is noted in the left vastus lateralis musculature. 4. Extensive left thigh cellulitis, myositis and fasciitis. No definite evidence of necrotizing fasciitis identified in the current study. 5. Nonspecific left sciatic neuritis. Dictated by: Deana Briseno MD, PhD on 03/09/2016 at 22:52 Approved by: Deana Briseno MD, PhD on 03/09/2016 at 22:52 X-RAY CHEST ONE VIEW, PORTABLE IMPRESSION: No acute cardiopulmonary disease. Dictated by: Toney Wellington RRA Interpreted: Deana Briseno MD on 03/09/2016 at 9:50 Transcribed by: JOSE on 03/09/2016 at 9:50 Approved by: Deana Briseno MD, PhD on 03/09/2016 at 16:34 Assessment & Plan Patient is a 66 year old male with a history of diabetes mellitus, hypertension , osteomyelitis, and recurrent abscess to his left upper thigh who presents to the ED for evaluation of large left thigh abscess with purulent drainage that began yesterday. Hospital day 2. 1. Abscess with Purulent Drainage, Left anterior thigh, POA This is a recurrent problem for this patient. He was urgently taken by General Surgery for I&D on 03/09. Upon further questioning, patient reports that he continues to inject his Insulin into his thighs. With his recurrent infections, will educate patient to inject in a new area. Wound care following. Abscess culture pending, Consider antibiotics if drainage insufficient for treatment. Gram stain shows many WBCs and some gram-positive cocci Advance diet as tolerated after surgery IV Dilaudid prn pain Antibiotics: Vancomycin and Zosyn per ID MRI results as above showed osteomyelitis. Orthopedics consulted. Recommend transfer. pt is still waiting for a bed at [facility] Dr. Melquiades Berrios infectious disease was consult regarding this patient 2. Chronic Macrocytic Anemia, POA We do not have any of his previous records, but he does report chronic anemia although he is unsure why and denies history of alcoholism Hgb 6.9 on admit, transfused 2 units H&H 8.0 and 25.3 this morning Patient notes that he had been diagnosed with anemia before did get blood transfusions previously as mentioned in above in subjective section. We will get old records to further review We will check iron studies, B12 folate and reticulocyte count. We will try to have the lab add those to the labs that were obtained prior to his transfusion. Guaiac stools 3. Chronic Atrial fibrillation, POA Per history, patient has chronic afib, only on full dose Aspirin. Continue Aspirin 325mg daily Continue Diltiazem ER daily 4. Asymptomatic Bacteriuria, POA Pyuria noted on UA. Will await patient's culture since he does not complain of any symptoms. There was a significant amount of epithelial cells in the specimen so we will reorder clean catch urine for micro and culture if indicated 5. Insulin Dependent DM2, POA Per med rec, patient injects Levemir 30 units QAM and Lispro S/S Will place patient on Lispro Medium correctional scale, Will continue Metformin after surgery Diabetic education recommended 6. Hypertension, POA Continue patient's home medications 7. Hyperlipidemia, POA Continue Statin 8. Mood Disorder, POA Continue Effexor and Mirtazapine, He reports this is for his depression 9. BPH, POA Continue Flomax Disposition: pt was rejected by [facility] yesterday per EMR I spoke to [facility] today, indirectly contacted with , orthopod, who declined for transfer as this is complicated case, should transfer to [facility] Femur MRI sent to , awaiting to be uploaded, will try to contact tomorrow for possible transfer. likely to require help with Orthopedic service for direct contact to orthopedics at [facility] Prophylaxis: Sub-Q Heparin (Unfractionated) Resuscitation Status: CPR: Attempt Resuscitation Time spent 35min Alexandre Zacarias MD Mar 11, 2016 14:15
[2016-03-11 19:45] VITALS: BP 152/78; PULSE 76; RESP 16; O2SAT 98
[2016-03-11] MEDS: HYDROcodone-APAP 5-325 mg Tablet PO PRN ×2 (19:57→23:04)
[2016-03-12] MEDS: Heparin 5,000 Unit/mL Inj SUBQ SCH ×3 (00:37→16:47)
[2016-03-12 04:26] VITALS: BP 144/72; PULSE 83; RESP 20; O2SAT 96
[2016-03-12] MEDS: Piperacillin-Tazo 3.375 Gm Inj 3.375 GM in Dextrose 5% Minibag Plus 50 ML IV SCH (04:30)
[2016-03-12] MEDS: Insulin LISPRO 300 Unit/3 mL Inj SUBQ SCH ×4 (08:00→21:32)
[2016-03-12] MEDS: Ascorbic Acid 500 mg Tablet PO SCH (08:04)
[2016-03-12] MEDS: Venlafaxine XR 75 mg ER24 Capsule PO SCH (08:05)
[2016-03-12] MEDS: Diltiazem CD 120 mg ER24 Capsule PO SCH (08:05)
[2016-03-12] MEDS: Insulin GLARgine 100 Unit/mL Syringe SUBQ SCH (08:07)
[2016-03-12 09:25] LABS: Mean Corpuscular Hemoglobin 33.2 pg (27.0-35.0); Platelet Count 211 bil/L (150-400)
[2016-03-12 09:44] LABS: Magnesium 1.8 mg/dL (1.6-2.6); Phosphorus 2.9 mg/dL (2.5-4.9)
[2016-03-12 09:45] VITALS: BP 133/75; PULSE 85; RESP 20; O2SAT 93
[2016-03-12 10:38] LABS: BASOPHILS % (AUTO) 0 % (0-3); EOSINOPHILS % (AUTO) 1 % (0-5); MONOCYTES % (AUTO) 16 % (4-12); NEUTROPHILS % (AUTO) 55 % (40-74)
[2016-03-12] MEDS: CeFAZolin Inj 2 GM in IV Premix 1 EACH IV SCH ×2 (11:42→18:03)
[2016-03-12] MEDS: metroNIDAZOLE Inj 500 MG in IV Premix 1 EACH IV SCH ×2 (12:21→19:03)
--- NOTE | 2016-03-12 12:34 | PCM.PNMED ---
Subjective Date of Service Mar 12, 2016 Subjective Patient denied any pain from left thigh remained hemodynamically stable and afebrile overnight [facility] is reviewing his case, spoke to orthopedics at possible combined surgery gen surg and ortho seems the best option Antibiotics were changed based on the culture result Exam Vital Signs Vital Sign - Last Date Time Temp Pulse Resp B/P Pulse Ox O2 Delivery O2 Flow Rate FiO2 03/12/16 09:45 36.9 85 20 133/75 93 Room Air 03/09/16 00:50 2 Intake and Output 03/11/16 03/11/16 03/12/16 Cumulative From/Thru 15:00 23:00 07:00 03/08/16 00:33 - 03/12/16 04:53 Intake Total 1790 ml 766 ml 7159 ml Output Total 1050 ml 1110 ml 6275 ml Balance 740 ml -344 ml 884 ml Intake Oral 1418 ml 400 ml 3792 ml IV Total 372 ml 366 ml 3067 ml Packed Cells 300 ml Output Urine Total 1050 ml 1110 ml 6255 ml Estimated Blood Loss 20 ml # Bowel Movements 1 1 Exam NAD, comfortably laying down on the bed no JVD, MMM, no LAD RRR, nl s1, s2 no mrg CTAB, no w,c S,ND,NT,normoactive BS+ EXT - left lateral hip/thigh sterilely dressed , pulses 2/2 distally IVs and Medications Medications Reviewed: Medications were reviewed in detail Lab and Diagnostics Result Diagram: 03/12/1681803/12/16818 X-Rays, CTs and MRIs MRI FEMUR LEFT WITH AND WITHOUT CONTRAST IMPRESSION: 1. Osteomyelitis involving the superior tip of the greater trochanter of the left femur. 2. Nonspecific subchondral marrow edema involving the left ischial tuberosity which could represent reactive change associated with avulsed left common hamstring tendon or early osteomyelitis. 3. Multiple abscesses involving the left trochanteric bursa, within the left biceps femoris muscle, within the left obturator muscle and in the left vastus lateralis muscle. I&D procedure with drain placement is noted in the left vastus lateralis musculature. 4. Extensive left thigh cellulitis, myositis and fasciitis. No definite evidence of necrotizing fasciitis identified in the current study. 5. Nonspecific left sciatic neuritis. Dictated by: Deana Briseno MD, PhD on 03/09/2016 at 22:52 Approved by: Deana Briseno MD, PhD on 03/09/2016 at 22:52 X-RAY CHEST ONE VIEW, PORTABLE IMPRESSION: No acute cardiopulmonary disease. Dictated by: Toney Wellington RRA Interpreted: Deana Briseno MD on 03/09/2016 at 9:50 Transcribed by: JOSE on 03/09/2016 at 9:50 Approved by: Deana Briseno MD, PhD on 03/09/2016 at 16:34 Assessment & Plan Patient is a 66 year old male with a history of diabetes mellitus, hypertension , osteomyelitis, and recurrent abscess to his left upper thigh who presents to the ED for evaluation of large left thigh abscess with purulent drainage that began yesterday. Hospital day 2. 1. Abscess with Purulent Drainage, Left anterior thigh, POA This is a recurrent problem for this patient. He was urgently taken by General Surgery for I&D on 03/09. Upon further questioning, patient reports that he continues to inject his Insulin into his thighs. With his recurrent infections, will educate patient to inject in a new area. Wound care following. Advance diet as tolerated after surgery IV Dilaudid prn pain MRI results as above showed osteomyelitis. changed abx from van/zosyn to cefazolin and flagyl based on abscess culture showed MSSA, Dr. Melquiades Berrios agreed, 2. Chronic Macrocytic Anemia, POA We do not have any of his previous records, but he does report chronic anemia although he is unsure why and denies history of alcoholism Hgb 6.9 on admit, transfused 2 units H&H 8.0 and 25.3 this morning Patient notes that he had been diagnosed with anemia before did get blood transfusions previously as mentioned in above in subjective section. We will get old records to further review We will check iron studies, B12 folate and reticulocyte count. We will try to have the lab add those to the labs that were obtained prior to his transfusion. Guaiac stools 3. Chronic Atrial fibrillation, POA Per history, patient has chronic afib, only on full dose Aspirin. Continue Aspirin 325mg daily Continue Diltiazem ER daily 4. Asymptomatic Bacteriuria, POA Pyuria noted on UA. Will await patient's culture since he does not complain of any symptoms. There was a significant amount of epithelial cells in the specimen so we will reorder clean catch urine for micro and culture if indicated 5. Insulin Dependent DM2, POA Per med rec, patient injects Levemir 30 units QAM and Lispro S/S Will place patient on Lispro Medium correctional scale, Will continue Metformin after surgery Diabetic education recommended 6. Hypertension, POA Continue patient's home medications 7. Hyperlipidemia, POA Continue Statin 8. Mood Disorder, POA Continue Effexor and Mirtazapine, He reports this is for his depression 9. BPH, POA Continue Flomax Disposition: possible transfer to [place] per for complicated combined surgery, awaiting final answer from transfer center, , [facility] rejected by [facility] Addendum> Case reviewed by Ortho at , agreed that it's complicated case, referred to Gen surg Dr. Deacon Davidson as primary target likely perirectal abscess, possible fistula Transfer stated that since is not accepting the patient, they declined transfer. updated , plan is to have speak to Gen surg television news anchor at tomorrow directly [facility] Prophylaxis: Sub-Q Heparin (Unfractionated) Resuscitation Status: CPR: Attempt Resuscitation Time spent 35min Alexandre Zacarias MD Mar 12, 2016 12:34
[2016-03-12 15:11] VITALS: BP 134/73; PULSE 82; RESP 20; O2SAT 95
--- NOTE | 2016-03-12 18:38 | PROG NOTE ---
[address] [address] PROGRESS NOTE PATIENT: CAPRI SALINAS : 1950 MR#: [id number] ADMIT: 03/08/2016 JOB ID: [id number] DATE: 03/12/2016 I examined the patient and he subjectively feels better than he did on Sunday. There is no sign of rapidly advancing soft tissue or deep infection requiring urgent surgical intervention. I discussed the case with Dr. Sandoval, orthopedic surgery, and she clarified that due to the deep nature of the infection and the possibility of the need to approach the pelvis both anteriorly and posteriorly that transfer to Orthopedic Center that has ongoing experience with dealing with open pelvic fractures and similar types of injuries is necessary and in the patient's best interest. She tells me she had a conversation with the orthopedic surgeon on-call at [facility] who concurred with her. I have asked Dr. Sandoval to dictate consultation regarding her review of the scan and discussions, and I anticipate that we will ne able to coordinate transfer for the patient within the next 24-48 hours to a center that will provide him with the operative expertise that he requires. Thirty minutes was spent in discussion and coordination of care as well as [id number] time with the patient today.
--- NOTE | 2016-03-12 18:41 | PROG NOTE ---
[address] [address] PROGRESS NOTE PATIENT: CAPRI SALINAS : 1950 MR#: [id number] ADMIT: 03/08/2016 JOB ID: [id number] DATE: 03/12/2016 I was contacted today by the transfer center from [facility] regarding the patient. I was asked to speak to the general surgeon contour band saw operator vertical. Transfer Center explained to me that their orthopedic surgeon had not wanted to accept the patient because of concern of involvement of the perirectal area, and that at this point, and the general surgeon had initially wanted to speak to me but now was a feeling that they could not accept the patient as he did not require a higher level of care. I did speak to Dr. Davidson, the general surgeon contour band saw operator vertical, and explained that I had not seen the patient but that my understanding was that his abscess was in his thigh and had now extended down to the piriformis and greater trochanter area and required orthopedic involvement and that our orthopedic surgeon did not feel comfortable proceeding, and therefore, there was required transfer. I did explain that from my understanding of the case, it was clear that the patient needed to be transferred to a center with a higher level of care from the Orthopedic Service and indicated that I would go examine the patient and review the case, as the sign-out had been that we did not need to continue to follow him as he was being transferred. Dr. Davidson explained to me that [facility] was quite full and that he wanted us to try to transfer the patient to another center for higher level of orthopedic care, but that if we were unsuccessful that we should call him again tomorrow. I then spoke with Dr. Zacarias, taking care the patient for the hospitalist service, and found out that they had tried to transfer the patient to [facility] in [place] and [facility] in [place], both of whom had refused. I recommended that we try to transfer the patient to either [facility] or to [facility] and that my impression was that if we made a sincere effort to obtain a transfer to all other possible centers that [facility] would consider taking him tomorrow. Dr. Zacarias tells me that the patient is stable, but I will, at this point, go examine the patient and review the films and ascertain that transfer for orthopedic care can wait until tomorrow. The option tomorrow will still be to transfer the patient to another center for higher level of care or to get further input from orthopedic department.
[2016-03-12 18:44] VITALS: BP 141/78; PULSE 89; RESP 20; O2SAT 99
--- NOTE | 2016-03-12 19:00 | CONS ---
[address] [address] CONSULTATION REPORT PATIENT: CAPRI SALINAS : 1950 MR#: [id number] ADMIT: 03/08/2016 JOB ID: [id number] DATE OF SERVICE: 03/12/2016 CHIEF COMPLAINT: This is a 66-year-old male. I was asked to review an MRI scan. He has had 3 perirectal abscesses and 3 left thigh abscesses since 2015. He also has some fluid collection alonfg the piriformis muscle and obturator internus on MRI scan. The patient is not cuurently septic. Grew MSSA and is on IV antibiotics. I discussed the case with Dr. Ha from general surgery on Sunday and he asked me to check the MRI scan on this patient. Dr. Ha recently did an incision and drainage of a perirectal abscess as well as an incision and drainage of an abscess in the lateral thigh extending from the greater trochanter down toward the knee in the area between the tensor fascia rabia and the skin. He had stated that surgery was performed through a few small separate incisions and that he had drains in between the wounds tunneled under the skin. The MRI scan showed that there was some small amount of fluid collection along the piriformis and the obturator internus extending into the pelvis to the obturator ring. There was also some inflammation and swelling along the sciatic nerve. After review of those films, I discussed the case again with Dr. Ha and I suggested that the patient would be best served being transferred to a higher level of care with his previous history. The history to my knowledge is as follows that the patient has had multiple surgeries at [facility] beginning in August 2015. He was otherwise healthy until that time and recently retired 66-year-old male. Since that time he had two perirectal abscesses and two abscesses in the left thigh. He was treated at [facility] for several months. He was then at this time admitted to our hospital with another perirectal abscess that Dr. Ha surgically drained and also the patient had developed another left lateral thigh abscess. Dr. Sy also surgically treated that. The MRI also was consistent with some osteomyelitis along the greater trochanter and Infectious Disease was consulted with Dr. Berrios. The decision for that would be long-term IV antibiotics. The patient has methicillin sensitive Staph aureus and is on appropriate antibiotics. I discussed the case with the Dr. Berrios. Since this patient has now had three perirectal abscesses as well as now three left thigh abscesses and now has some residual fluid tracking up posteriorly along the piriformis and obturator internus into a portion of the pelvis, he is suspect that there might be some sort of fistula from the perirectal abscess region into the pelvis. We were in agreement that transferring this patient to a facility with a higher level of care would be in his best interest. With an infection potentially tracking into the pelvis itself, the patient would be best served at a facility that treats pelvic trauma with surgeons that are used to those particular surgical approaches both anterior and posterior into the pelvis. I received a phone call today from [facility] [place]. I was asked to speak with the orthopedic surgeon there to try and have the patient transferred to [facility]. I spoke to Dr. Flowers, orthopedic surgeon salesperson terrazzo tiles, and explained the scenario. I indicated that the patient was stable blood pressure-velasquez and was not febrile and was on appropriate antibiotics. I had indicated to them that I had also spoken to Dr. Berrios from Infectious Disease and that my concerns were that the patient might have some type of fistula tracking into the pelvis from the rectum and that I did not feel comfortable with any type of intrapelvic surgical approach since we do not surgically treat pelvic fractures. Dr. Flowers agreed that it sounded like it would be a good idea to have the patient transferred where they could coordinate efforts from the pelvic orthopedic surgical team as well as from general surgery. He had indicated he would speak to General Surgery and offer his services from an orthopedic standpoint so the patient could receive combined services. The hospitalist then contacted me this afternoon indicating that the general surgeon at [facility] had indicated he did not think that the infection was that significant as noted on the MRI scan. I again spoke to the hospitalist and told him that I still felt that any infection posteriorly tracking up into the anterior portion of the pelvis could be a really significant surgical dissection and should be performed from an orthopedic surgeon that is well-versed with pelvic surgical approaches. I also spoke to two of our other orthopedic surgeons here that performtotal joint replacements and they too felt that an infection posterolaterally in the hip muscles could potentially track up into the pelvis and they did not feel comfortable with that type of surgical pelvic approach either. I then spoke to the general surgeon salesperson terrazzo tiles today and also reiterated to him that I really feel the patient is best served by being transferred to a facility with a higher level of care. We would most appreciate assistance from [facility] if possible where the patient could get treatment from not only orthopedic surgeon there from the pelvic service as well as the general surgical service. It was certainly not an emergency that the patient needed to be transferred today, but I was hopeful that they might be able to transfer him tomorrow. Again, the orthopedic surgeon at [facility] did indicate that it sounded like a very reasonable transfer with this patient's particular history of recurrent infections. CC: [facility] CC: Pietro Ivy
[2016-03-12] MEDS: HYDROcodone-APAP 5-325 mg Tablet PO PRN (19:02)
[2016-03-12 20:34] VITALS: BP 149/89; PULSE 77; RESP 20; O2SAT 97
[2016-03-13] MEDS: CeFAZolin Inj 2 GM in IV Premix 1 EACH IV SCH ×3 (02:10→16:53)
[2016-03-13] MEDS: Heparin 5,000 Unit/mL Inj SUBQ SCH ×3 (02:11→16:53)
[2016-03-13] MEDS: metroNIDAZOLE Inj 500 MG in IV Premix 1 EACH IV SCH ×2 (03:41→10:58)
[2016-03-13] MEDS: HYDROcodone-APAP 5-325 mg Tablet PO PRN (05:00)
[2016-03-13 06:07] VITALS: BP 127/71; PULSE 82; RESP 19; O2SAT 98
[2016-03-13] MEDS: HYDROmorphone 0.5 mg/0.5 mL iSecure Syringe IVPUSH PRN ×4 (06:21→17:48)
[2016-03-13 07:40] VITALS: BP 120/59; PULSE 71; RESP 18; O2SAT 96
[2016-03-13 07:59] LABS: Magnesium 1.7 mg/dL (1.6-2.6); Mean Corpuscular Hemoglobin 33.2 pg (27.0-35.0); Mean Corpuscular Volume 106.6 fL (81-100); Phosphorus 3.3 mg/dL (2.5-4.9); Platelet Count 226 bil/L (150-400)
[2016-03-13] MEDS: Insulin LISPRO 300 Unit/3 mL Inj SUBQ SCH ×3 (08:00→17:08)
[2016-03-13] MEDS: Ascorbic Acid 500 mg Tablet PO SCH (08:21)
[2016-03-13] MEDS: Diltiazem CD 120 mg ER24 Capsule PO SCH (08:23)
[2016-03-13] MEDS: Venlafaxine XR 75 mg ER24 Capsule PO SCH (08:23)
[2016-03-13] MEDS: Insulin GLARgine 100 Unit/mL Syringe SUBQ SCH (08:30)
[2016-03-13 08:42] LABS: BASOPHILS % (AUTO) 0 % (0-3); EOSINOPHILS % (AUTO) 2 % (0-5); MONOCYTES % (AUTO) 17 % (4-12); NEUTROPHILS % (AUTO) 58 % (40-74)
[2016-03-13 11:07] LABS: Complement Total(CH50) > 60 U/mL (42-60)
[2016-03-13 12:00] VITALS: BP 142/81; PULSE 77; RESP 18; O2SAT 94
[2016-03-13] MEDS ORDERED: 0.9% Sodium Chloride 100 ML ONE (12:57)
--- NOTE | 2016-03-13 15:32 | PCM.PNSURG ---
Subjective Date of Service: Mar 13, 2016 Visit Information: Reason for Visit Thigh Abscess Leukocytosis Surgery/Surgery Date Post-Op Day # 4 Date of Admission: Mar 08, 2016 at 23:22 Hospital Day # Subjective: Minimal left thigh pain. Postop General: No Complaints Pain Management: PO (oxycodone, [place], and oral Tylenol), IV Push ( intermittent IV Dilaudid) Objective Vital Sign- Last 8 Hours Date Time Temp Pulse Resp B/P Pulse Ox O2 Delivery O2 Flow Rate FiO2 03/13/16 12:00 36.6 77 18 142/81 94 Room Air 03/13/16 07:40 36.5 71 18 120/59 96 Room Air Intake and Output- Last 8 Hour 03/13/16 Cumulative From/Thru 07:00 03/08/16 00:33 - 03/13/16 06:26 Intake Total 634 ml 9592 ml Output Total 900 ml 8325 ml Balance -266 ml 1267 ml Intake Oral 300 ml 5570 ml IV Total 334 ml 3722 ml Packed Cells 300 ml Output Urine Total 900 ml 8305 ml Estimated Blood Loss 20 ml # Bowel Movements 1 2 General: Alert, Cooperative, No Acute Distress SURGICAL WOUND : Wound Location/Description Left thigh is examined: No thigh edema is noted. No erythema or drainage around any of the 3 incisions. [place] drains are intact. Wound General Appearence: Wound under dressing Extremities: Thigh&Calf Soft/Nontender, Other (unable to independently raised left leg off the bed. Can flex knee and drawl ankle up to his gluteus independently.) Neuro: Normal Speech Catheters: None Result Diagram: 03/13/16 0647 03/13/16 0647 Lab & Micro Results: Abscess is growing staph aureus that is oxacillin susceptible Assessment & Plan Impression Primary diagnosis: Left thigh chronic subfascial abscess. POD #4 on Flagyl and cefazolin with stable leukocytosis of 15,000 with no left shift. Slightly increased pain medication requirements. Need for transfer to a facility with higher level of care is delayed due to area facilities not having bed availability. Other diagnoses: 1. Hydrocele 2. BPH w/o LUTS 3. Cavitary Lesion of Lung 4. T2DM requiring Insulin 5. H/o Osteomyelitis of left femur 6. H/o Perirectal Absccess 7. Chronic Anemia 8. Hyperlipidemia 9. Mood disorder Problems: Plan A telephone discussion was held with Dr. Zacarias from the hospitalist service who relates that Dr. Jean Herron from the general surgery service is attempting transfer to [facility] today. Pain Management: Will discontinue [place] and use oxycodone and oral Tylenol with intermittent IV Dilaudid for breakthrough pain. [facility] Prophylaxis: Sub-Q Heparin (Unfractionated) Resuscitation Status: CPR: Attempt Resuscitation Martin Hester PA-C Mar 13, 2016 15:32
--- NOTE | 2016-03-13 15:36 | PROG NOTE ---
[address] [address] PROGRESS NOTE PATIENT: CAPRI SALINAS : 1950 MR#: [id number] ADMIT: 03/08/2016 JOB ID: [id number] DATE: March 13, 2016. REASON FOR FOLLOWUP: Extensive left thigh, pelvic, and perirectal infection. INTERVAL HISTORY: Over the weekend, there has been considerable discussion with the surgeons about the disposition of this patient. They feel that based on the MRI scan, as well as his seven-month history of perirectal and thigh abscesses, that the patient has extensive involvement of pelvic and upper thigh structures which should be evaluated and treated at an outside facility. Apparently, [facility], which has provided mild most of the care over the past several months for these complicated abscesses has declined to take him back in transfer. They are now working to perhaps get him transferred to the [facility]. In the meantime, the patient continues to feel reasonably well, though he does have considerable pain along the site of his left lateral thigh dissection. He denies fevers, chills, or sweats. No sore throat, cough, chest pain, nausea, vomiting, or diarrhea. PHYSICAL EXAMINATION: Reveals a fairly comfortable gentleman who is afebrile and lying in bed. Temp 36.5, pulse 71, respiratory rate 18, blood pressure 120/59, saturating well on room air. Mental status is sharp. Oral cavity negative. Lungs quite clear. Cardiac tones regular rate and rhythm without murmur. Abdomen benign. The perirectal areas were examined. There are two small areas of drainage along the left inferior perirectal area. The more superior of these certainly has the appearance of a sinus tract. The patient's left lateral thigh incision, which is very extensive, was also examined. There is no evidence of ongoing superficial infection, but the patient obviously has drains and there was an extensive infection at the time of his debridement. LABORATORIES: Include white count 15,000, which is quite stable but not declining. He has 7% metamyelocytes as well. His creatinine 1.16. Albumin 3.1. His last procalcitonin 3 days ago was 0.7. Hep C and HIV are negative. Quantitative immunoglobulins have been checked and are normal. Complement levels are pending as are CD4 counts. Micro studies include MSSA from the abscess. Anaerobes are likely given the character of this infection and I think it is reasonable to include anaerobic coverage as well. A nasal MRSA screen has been negative. IMAGING: Was previously discussed. The patient's MRI of the femur disclosed a great deal of abnormalities up to and involving the pelvis. IMPRESSION: This is an unfortunate gentleman with a seven-month history of ongoing left perirectal and left thigh abscesses and infections. He has had multiple procedures, mainly at [facility], without resolution of this process and I was able to only spend a brief period of time at home before his latest relapse and readmission to this facility following a fairly recent discharge from [place]. At this point, he has had a large incision and drainage of the left thigh which has grown MSSA and anaerobes are undoubtedly present as well. Imaging, as well as the continued drainage from the perirectal abscess suggests that this tracks through the pelvis up into the perirectal space and will likely require extensive and specialized surgery. RECOMMENDATIONS: 1. We narrowed the antibiotics over the weekend to Ancef and Flagyl and I would continue with those choices for the indefinite future. 2. MRSA isolation can be dropped. This case discussed with the orthopedic and general surgeons and I agree with the plans for transfer to a higher level of care where there is more expertise regarding infections high in the thigh or low in the pelvis. Thank you very much.
[2016-03-13] MEDS ORDERED: METR500T PO (16:26)
[2016-03-13] MEDS ORDERED: CEFA1VIA3 IV (16:26)
--- NOTE | 2016-03-13 16:28 | PCM.DIMED ---
Discharge Instructions Date of Service Mar 13, 2016 Dates of Hospitalization Mar 08, 2016 at 23:22 Discharge Diagnosis Discharge Diagnosis Complicated left thigh and pelvic abscess Left trochanteric osteomyelitis Patient Instructions Your hospitalized with Left thigh abscesses, underwent I&D by general surgeon, found to have very complex infection undergo left thigh and deep tissue in pelvis. You were accepted by [facility] for further surgical intervention. Follow-up plan Please follow-up with doctors at [facility], accepting doctor , hospitalist Alexandre Zacarias MD Mar 13, 2016 16:28
--- NOTE | 2016-03-13 16:29 | PCM.PNSURG ---
Subjective Visit Information: Reason for Visit Thigh Abscess Leukocytosis Surgery/Surgery Date Post-Op Day # Date of Admission: Mar 08, 2016 at 23:22 Hospital Day # Subjective: no major issues, aware that we're trying to transfer him, I've been on phone with Marylou, Lisa, and Objective Objective Awake L thigh wrapped up Aria-rectal wound x2 Vital Sign- Last 8 Hours Date Time Temp Pulse Resp B/P Pulse Ox O2 Delivery O2 Flow Rate FiO2 03/13/16 12:00 36.6 77 18 142/81 94 Room Air Intake and Output- Last 8 Hour 03/13/16 Cumulative From/Thru 07:00 03/08/16 00:33 - 03/13/16 06:26 Intake Total 634 ml 9592 ml Output Total 900 ml 8325 ml Balance -266 ml 1267 ml Intake Oral 300 ml 5570 ml IV Total 334 ml 3722 ml Packed Cells 300 ml Output Urine Total 900 ml 8305 ml Estimated Blood Loss 20 ml # Bowel Movements 1 2 Result Diagram: 03/13/16 0647 03/13/16 0647 Assessment & Plan Impression L troc osteomyelitis L thigh abscess s/p I & D Undrained deep abscess Problems: Plan Transfer to (Dr. Davila) with Gen surg and Ortho consult VTE Prophylaxis: Sub-Q Heparin (Unfractionated) Resuscitation Status: CPR: Attempt Resuscitation Jean Herron MD Mar 13, 2016 16:29
--- NOTE | 2016-03-13 16:47 | PCM.DC.MED ---
Discharge Summary Date of Service Mar 13, 2016 Dates of Hospitalization Date of Hospital Admission Mar 08, 2016 at 23:22 Date of Discharge: Mar 13, 2016 Providers: Admitting Physician: Fidel Park MD Primary Care Physician: Blas Lerner MD Attending Physician: Chintan Ha MD Diagnosis at Time of Discharge Diagnosis at Time of Discharge Complicated left thigh and pelvic abscess Left trochanteric osteomyelitis left thigh cellulitis 2. Chronic Macrocytic Anemia, 3. Chronic Atrial fibrillation, 4. Asymptomatic Bacteriuria, 5. Insulin Dependent DM2, 6. Hypertension, 7. Hyperlipidemia, 8. Mood Disorder 9. BPH Consultations Infectious disease Gen. surgery Orthopedic surgery Procedures XRay, CTs & MRIs MRI FEMUR LEFT WITH AND WITHOUT CONTRAST IMPRESSION: 1. Osteomyelitis involving the superior tip of the greater trochanter of the left femur. 2. Nonspecific subchondral marrow edema involving the left ischial tuberosity which could represent reactive change associated with avulsed left common hamstring tendon or early osteomyelitis. 3. Multiple abscesses involving the left trochanteric bursa, within the left biceps femoris muscle, within the left obturator muscle and in the left vastus lateralis muscle. I&D procedure with drain placement is noted in the left vastus lateralis musculature. 4. Extensive left thigh cellulitis, myositis and fasciitis. No definite evidence of necrotizing fasciitis identified in the current study. 5. Nonspecific left sciatic neuritis. Dictated by: Deana Briseno MD, PhD on 03/09/2016 at 22:52 Approved by: Deana Briseno MD, PhD on 03/09/2016 at 22:52 X-RAY CHEST ONE VIEW, PORTABLE IMPRESSION: No acute cardiopulmonary disease. Dictated by: Toney Wellington [facility] Interpreted: Deana Briseno MD on 03/09/2016 at 9:50 Transcribed by: JOSE on 03/09/2016 at 9:50 Approved by: Deana Briseno MD, PhD on 03/09/2016 at 16:34 Brief History H&P performed by on 03/08 Patient is a 66 year old male with a history of diabetes mellitus, chronic afib , hypertension, osteomyelitis, and recurrent abscess to his left upper thigh who presents to the ED with a large abscess to his left upper leg that was been draining purulent discharge since yesterday. Patient was originally evaluated at and sent to the ED for further treatment. He reports the symptoms began yesterday and he has noticed subjective fevers. He denies any chills, n/v/d, or neck stiffness. Patient reports that he has had multiple I&Ds of this left thigh and merced-rectal abscess in the past year at [facility]. He reports he had a drain placed, but that was removed about a month ago. He was recently at [facility] for rehab and IV antibiotics via a PICC line for his abscess and osteomyelitis. In the ED his vitals were stable. His labs were pertinent for WBC of 21.2 and Hgb of 6.8 with MCV of 111.2 and ESR of >140 and lactic of 1.5. His UA showed Large LEs with >50 urine WBC but no casts. He had an U/S of his left thigh that is consistent with abscess formation. Surgery was notified and patient was taken for urgent I&D. 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 Shortly thereafter, he developed an extensive perirectal abscess for which he was hospitalized at [facility]. He reported that hospitalization involved multiple surgeries and several weeks on an inpatient basis in the hospital. At the conclusion of that, he was still having drainage from his perirectal area and was being treated with IV antibiotics. He was transferred to one of the [facility] here in [facility]. Subsequent to that, he developed a thigh abscess which required debridement and drainage and eventually a 2nd surgery was required for thigh abscess at [facility] in January. Following this episode, the patient had initially had a drain placed in his left thigh and received additional antibiotics with IV antibiotics through [facility] before the antibiotics were stopped and the drains were pulled. Following the conclusion of the pulling of the last drain, the patient was having ongoing spontaneous drainage from his left thigh as well as from two areas around his left buttock. This drainage looked relatively uninfected and he felt reasonably well though he was still confined to a rehab facility and was unable to ambulate without the assistance of a walker. In the days leading up to this admission, the patient was not receiving any antibiotics and was living at the assisted facility. He reports that just prior to yesterday's admission that the spontaneous drainage from the left thigh wound changed color and had become more of a chunky milky consistency which was of great concern to him. The volume also increased quite a bit over baseline and, for that reason, she sought evaluation and was admitted here yesterday. The patient was then taken to the operating room just past midnight by Dr. Ha of Surgery to clean out a very extensive left thigh abscess. Considerable turbid fluid was obtained as well as some gelatinous material. It was unclear to Dr. Ha at the time of surgery whether or not this thigh abscess connected in fact to his still draining perirectal abscess area, but it seemed likely apparently to Dr. Ha that it did though he was not able to completely explore it during the surgery. The patient did not have any associated fevers, chills, or sweats with this nor did he have swelling or tenderness in the left thigh but rather just noticed a change in the volume and consistency of the spontaneous drainage. Since yesterday, the patient has been in the hospital here receiving vancomycin and Zosyn as empiric antibiotics and he has undergone the extensive debridement of his left thigh. The patient states he was seen by numerous specialists during his multiple stays at [facility], but he was unclear as to what final diagnosis might have been established behind his perirectal and left thigh abscesses. He notes that his diabetes has actually been in fairly good control and he has never had any similar such infection. He also specifically denies any history compatible with inflammatory bowel disease and has no family history of Crohn's or ulcerative colitis. Hospital Course Patient is a 66 year old male with a history of diabetes mellitus, hypertension , osteomyelitis, and recurrent abscess to his left upper thigh who presents to the ED for evaluation of large left thigh abscess with purulent drainage 1. Abscess with Purulent Drainage, Left anterior thigh, patient has been follow- up with [facility] for recurrent merced-rectal abscesses, however did not have any final diagnosis regarding recurrent ulcer. pt was started with vancomycin and Zosyn, underwent I&D on 03/09 by General Surgery for I&D. intraoperative findings "The collection measured 30 cm x 8 cm, with a depth of 6 cm. It was subfascial, and extended posterior to the left greater trochanter. A definite connection to the perirectal abscess cavity could not be demonstrated. There was a small amount of pus, but a large amount of gelatinous chronic inflammatory debris" Post I&D Femur MRI however shows osteomyelitis of the greater trochanter of the left femur, probable early osteomyelitis on pelvic bone, deep mulitple ulcers in pelvis involving the left trochanteric bursa, within the left biceps femoris muscle, within the left obturator muscle and in the left vastus lateralis muscle. but No definite evidence of necrotizing fasciitis identified. Patient was consulted with orthopedic service. , given this complicated abscess, anatomy, this was not amenable for surgery in our facility, therefore recommended transfer to tertiary care center. Patient has been clinically stable on IV antibiotics, changed to cefazolin and Flagyl based on abscess culture, MSSA, pansensitive. pain was well controlled, hemodynamically stable. Patient was accepted at [facility], . chronic, stable problems as below 2. Chronic Macrocytic Anemia, POA We do not have any of his previous records, but he does report chronic anemia although he is unsure why and denies history of alcoholism Hgb 6.9 on admit, transfused 2 units H&H 8.0 and 25.3 this morning Patient notes that he had been diagnosed with anemia before did get blood transfusions previously as mentioned in above in subjective section. We will get old records to further review We will check iron studies, B12 folate and reticulocyte count. We will try to have the lab add those to the labs that were obtained prior to his transfusion. Guaiac stools 3. Chronic Atrial fibrillation, POA Per history, patient has chronic afib, only on full dose Aspirin. Continue Aspirin 325mg daily Continue Diltiazem ER daily 4. Asymptomatic Bacteriuria, POA Pyuria noted on UA. Will await patient's culture since he does not complain of any symptoms. There was a significant amount of epithelial cells in the specimen so we will reorder clean catch urine for micro and culture if indicated 5. Insulin Dependent DM2, POA Per med rec, patient injects Levemir 30 units QAM and Lispro S/S Will place patient on Lispro Medium correctional scale, Will continue Metformin after surgery Diabetic education recommended 6. Hypertension, POA Continue patient's home medications 7. Hyperlipidemia, POA Continue Statin 8. Mood Disorder, POA Continue Effexor and Mirtazapine, He reports this is for his depression 9. BPH, POA Continue Flomax Exam Vital Signs (Last) Date Time Temp Pulse Resp B/P Pulse Ox O2 Delivery O2 Flow Rate FiO2 03/13/16 12:00 36.6 77 18 142/81 94 Room Air 03/09/16 00:50 2 Exam NAD, comfortably laying down on the bed no JVD, MMM, no LAD RRR, nl s1, s2 no mrg CTAB, no w,c S,ND,NT,normoactive BS+ warm, no edema, pulses 2/2 Left thigh sterilely dressed Test 03/08/16 22:05 03/08/16 22:17 03/08/16 22:52 03/09/16 06:04 Prothrombin Time 13.4sec (8.1-12.5) Prothromb Time International Ratio 1.25ratio Activated Partial Thromboplast Time 32.3sec (22.8-33.0) Lactic Acid Level 1.5mmol/L (0.4-2.0) Urine Color Dark yellow (YELLOW) Urine Appearance Cloudy (CLEAR,HAZY) Urine pH 5.5 (5.0-8.0) Urine Specific [place] 1.020 (1.003-1.035) Urine Protein 30mg/dL (NEG,TRACE) Urine Glucose (UA) Negativemg/dL (NEGATIVE) Urine Ketones Negativemg/dL (NEGATIVE) Urine Occult Blood Small (NEGATIVE) Urine Nitrite Negative (NEGATIVE) Urine Bilirubin Negative (NEGATIVE) Urine Urobilinogen Normalmg/dL (NORMAL) Urine Leukocyte Esterase Large (NEGATIVE) Urine RBC 0-2/hpf (0-2) Urine WBC >50/hpf (0-5) Urine Epithelial Cells Occasional/hpf (NONE-MOD) Urine Crystals None seen (NONE SEEN) Urine Bacteria None/hpf (NONE-FEW) Urine Hyaline Casts None/lpf (NONE) Urine Granular Casts None seen (NONE SEEN) Urine Waxy Casts None seen (NONE SEEN) Urine Red Blood Cell Casts None seen (NONE SEEN) Urine White Blood Cell Casts None seen (NONE SEEN) Urine Mucus None seen (None Seen) Urine Trichomonas None seen (NONE SEEN) Urine Yeast None (NONE SEEN) Urinalysis Comment Urine Culture Reflexed Indicated Hold Purple Top Tube Received (Received) Erythrocyte Sedimentation Rate > 140mm/hr (0-30) Hemoglobin A1c 6.4% (4.8-5.6) Iron Level 59ug/dL (35-150) Total Iron Binding Capacity 171ug/dL (250-450) Percent Iron Saturation 35%sat (15-50) Unsaturated Iron Binding 111.6ug/dL Vitamin B12 Level 601pg/mL (211-946) Folate 5.1ng/mL (>3.0) Test 03/09/16 12:55 03/10/16 08:20 03/10/16 14:05 03/10/16 18:01 Reticulocyte Count,Calculated 2.4% (0.6-2.6) Serum Immunoglobulin A 309mg/dL (61-437) Serum Immunoglobulin G 1041mg/dL (700-1600) Immunoglobulin M 101mg/dL (20-172) Total Complement (CH50) > 60U/mL (42-60) Hepatitis C Antibody <0.1s/co ratio (0.0-0.9) HIV (1&2) Ag and Ab, 4th Generation Non reactive (Non Reactive) Vancomycin Level Trough 11.8mcg/mL Ferritin 2607ng/mL (30-400) Procalcitonin 0.71ng/mL (See Comment) Test 03/13/16 06:47 White Blood Count 15.0th/mm3 (3.8-10.1) Red Blood Count 2.59mil/mm3 (4.40-5.80) Hemoglobin 8.6g/dL (13.8-17.2) Hematocrit 27.6% (41.0-50.0) Mean Corpuscular Volume 106.6fL (81-100) Mean Corpuscular Hemoglobin 33.2pg (27.0-35.0) Mean Corpuscular Hemoglobin Concent 31.2% (32.0-37.0) Red Cell Distribution Width 23.0% (12.3-15.4) Platelet Count 226bil/L (150-400) Neutrophils (%) (Auto) 58% (40-74) Lymphocytes (%) (Auto) 10% (14-46) Monocytes (%) (Auto) 17% (4-12) Eosinophils (%) (Auto) 2% (0-5) Basophils (%) (Auto) 0% (0-3) Band Neutrophils % 4% (1-5) Metamyelocytes % 3% (0-0) Myelocytes % 7% (0-0) Sodium Level 135mEq/L (134-144) Potassium Level 4.3mEq/L (3.5-5.2) Chloride Level 99mEq/L (97-108) Carbon Dioxide Level 23mmol/L (18-29) Blood Urea Nitrogen 21mg/dL (8-27) Creatinine 1.16mg/dL (0.76-1.27) Estimat Glomerular Filtration Rate 67mL/min (>59) Glucose Level 94mg/dL (60-99) Calcium Level 9.1mg/dL (8.5-10.1) Phosphorus Level 3.3mg/dL (2.5-4.9) Magnesium Level 1.7mg/dL (1.6-2.6) Total Bilirubin 0.2mg/dL (0.0-1.2) Aspartate Amino Transf (AST/SGOT) 11U/L (0-50) Alanine Aminotransferase (ALT/SGPT) 5U/L (0-44) Alkaline Phosphatase 75U/L (25-160) Total Protein 6.3g/dL (6.4-8.4) Albumin 3.1g/dL (3.4-5.0) Discharge Medications Discharge Medications Ascorbic Acid (Vitamin C) 1,000 Mg Tab.chew 1,000 MG PO DAILY (Reported) Aspirin (Aspirin) 325 Mg Tablet.dr 325 MG PO DAILY (Reported) Atorvastatin (Lipitor) 20 Mg Tablet 20 MG PO DAILY (Reported) Cefazolin Sodium (Cefazolin IV) 1 Gm Vial 2 GM IV Q8H Prescribed by: ALEXANDRE AMRTINEZ MD Cholecalciferol (Vitamin D3) (Vitamin D3) 2,000 Unit Capsule 2,000 UNIT PO DAILY (Reported) Diltiazem ER (Diltiazem ER) 120 Mg Cap.er.12h 120 MG PO DAILY (Reported) Fenofibrate (Fenofibrate) 160 Mg Tablet 160 MG PO DAILY (Reported) Finasteride (Finasteride) 5 Mg Tablet 5 MG PO DAILY (Reported) Insulin Detemir (Levemir Flextouch) 100 Unit/1 Ml Insuln.pen 30 UNIT SQ QAM ( Reported) Insulin Lispro (HumaLOG U100 Insulin Pen) 100 Unit/1 Ml Insuln.pen UNIT SUBQ TID -INSULIN (Reported) sliding scale insulin Melatonin/Pyridoxine (Melatonin 5 mg Tablet) 1 Each Tablet 1 EACH PO HS ( Reported) Metformin (Metformin) 500 Mg Tablet 1,000 MG PO BID (Reported) Metronidazole (Flagyl) 500 Mg Tablet 500 MG PO Q8H Prescribed by: ALEXANDRE MARTINEZ MD Mirtazapine (Mirtazapine) 15 Mg Tablet 15 MG PO HS (Reported) Tamsulosin (Flomax) 0.4 Mg Capsule 0.4 MG PO DAILY (Reported) Venlafaxine ER (Effexor XR) 75 Mg Cap.er.24h 225 MG PO DAILY (Reported) Vitamin E Mixed (Vitamin E) 400 Unit Capsule 400 UNIT PO DAILY (Reported) As needed Acetaminophen (Extra Strength Non-Aspirin) 500 Mg Tablet 1,000 MG PO Q4H PRN PRN For Pain (Reported) Followup Plan Disposition: another acute care facility Follow-up plan Please follow-up with doctors at [facility], accepting doctor , hospitalist Patient Instructions Your hospitalized with Left thigh abscesses, underwent I&D by general surgeon, found to have very complex infection undergo left thigh and deep tissue in pelvis. You were accepted by [facility] for further surgical intervention. Time spent 65min Alexandre Martinez MD Mar 13, 2016 16:47
[2016-03-13 18:00] VITALS: BP 149/71; PULSE 77; RESP 16; O2SAT 94
--- NOTE | 2016-03-13 18:08 | CONS ---
[address] [address] CONSULTATION REPORT PATIENT: CAPRI SALINAS : 1950 MR#: [id number] ADMIT: 03/08/2016 JOB ID: [id number] DATE OF SERVICE: 03/13/2016 CHIEF COMPLAINT: Left recurrent thigh abscesses. HISTORY OF PRESENT ILLNESS: The patient is a 66-year-old male, whom I was asked to see by Dr. Sandoval. He was previously healthy, but in September 2015, developed an infection over his lateral thigh, had this drained, and was on IV antibiotics. He was then discharged and shortly after discharge, he had recurrence of drainage, pain and swelling. Went back to [place] in December and underwent an I and D of his leg and then seemed to do better and was discharged home and had serous drainage but then began having more purulent drainage from his leg and he was brought into the emergency department. They attempted again to transfer back to [place] but his transfer was refused. He denies any fevers or chills at this point, and states that his leg feels about the same as it has over the past few days. He did undergo an I and D of the thigh with Dr. Ha, March 09, 2016. PAST MEDICAL HISTORY: Significant for diabetes mellitus, hypertension. PAST SURGICAL HISTORY: Includes the recent incision and drainage of complex thigh abscesses, as well as his surgical procedures from [place]. Blood pressure 142/81, pulse rate 77, respirations 18, temperature 36.6. He is alert and cooperative in no acute distress. His left hip has 20 degrees of internal and 30 degrees of external rotation with no significant pain at the extremes of motion. I do not appreciate any fluctuance over the ischium posteriorly nor does he have any redness or erythema in this area. He does have surgical dressings over his thigh and [place] drains in place. He has no pain with range of motion of his knee. No significant swelling throughout his left lower extremity. He is able to move his toes. Sensation to foot is intact. He has good strength with plantar flexion, dorsiflexion. LABORATORY EVALUATION: White blood cell count of 15.0, hemoglobin 8.6, 4% bandemia. MRI scan was reviewed. Demonstrates some abnormal signal and fluid around the ischium as well as adjacent to the trochanter and sciatic area as well as in the thigh. 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 PLAN: The patient is doing about the same. Does not feel significantly better or worse with his current course of treatment. He has failed two courses of treatment at [facility] in the recent past, and I do not have anything surgical to offer this patient. If he were to have surgical intervention adjacent to the tuberosity, I would recommend transfer to a higher level of care. Additionally, it is concerning to again treat this patient medically with the I and D's performed, as this has been done twice recently in the past with recurrences on both counts and I think the patient could benefit from expertise at a tertiary care facility with regard to Infectious Disease, General Surgery, and Orthopedics.
== END 2016-03-13 18:30 | disposition short-term general hospital (02) | DRG 603 ==
LOC: SED 19:46 → ORA 22:00 → MOC 23:22 → OBSVTOIN 23:22 → MOC 03-09 00:03
PROVIDERS: ADMIT Hospitalist; ATTEND Student in an Organized Health Care Education/Training Program
PROC: 30233N1 Transfusion of Nonautologous Red Blood Cells into Peripheral Vein, Percutaneous Approach (ICD-10-PCS; 2016-03-08)
PROC: 0JBM3ZX Excision of Left Upper Leg Subcutaneous Tissue and Fascia, Percutaneous Approach, Diagnostic (ICD-10-PCS; principal; 2016-03-09)
DX: L02.416 Cutaneous abscess of left lower limb (principal); M86.9 Osteomyelitis, unspecified; K61.1 Rectal abscess; L03.116 Cellulitis of left lower limb; Z79.82 Long term (current) use of aspirin; Z79.4 Long term (current) use of insulin; B95.61 Methicillin susceptible Staphylococcus aureus infection as the cause of diseases classified elsewhere; Z16.11 Resistance to penicillins; E11.9 Type 2 diabetes mellitus without complications; D53.9 Nutritional anemia, unspecified; I48.2 Chronic atrial fibrillation; I10 Essential (primary) hypertension; E78.5 Hyperlipidemia, unspecified; F39 Unspecified mood [affective] disorder; N40.0 Benign prostatic hyperplasia without lower urinary tract symptoms

== ENCOUNTER 2016-04-20 18:08 | Observation (INO) | payer MEDICARE ==
[~2016-04-20] VITALS: Ht 170.2 cm; Wt 79.7 kg
[~2016-04-20 18:08] MED LIST changes: +ACET-2561 PO; -ASCO10007 PO; +ASCO100089 PO; +ATOR20TA PO; +CEFA1VIA3 IV; -CHOL200020 PO; +CHOL200047 PO; +DILT120C10 PO; -DILT30TA30 PO; +FINA5TAB9 PO; -GLUC1CAP35 PO; -HYDR25TA4 PO; -INSU100I13 SUBQ; -KRIL1CAP PO; -LISI40TA PO; +MELA1TAB16 PO; -METF10002 PO; +METF500T4 PO; +METR500T PO; +MIRT15TA6 PO; +TAMS0.4C98 PO; +VITA400C64 PO; -fentaNYL-PF 50 mCg/mL 2 mL Inj ONE
[2016-04-20 18:17] VITALS: BP 142/76; PULSE 82; RESP 16; O2SAT 99
--- NOTE | 2016-04-20 18:30 | NUR ---
Admit Pt arrived to [facility] rm 1028 from Urgent Care at approx 1810. Rec'd report from MARILOU Hernandez at . pt arrived via w/c with his friend. Oriented to room and call light completed by KARLA. Pt able to pivot turn to the hospital bed. Hospitalist paged about pt's arrival. Bed down and locked, call light w/in reach.
[2016-04-20] MEDS ORDERED: Ondansetron 2 mg/mL 2 mL Inj IVPUSH PRN (19:20)
[2016-04-20] MEDS ORDERED: HYDROcodone-APAP 5-325 mg Tablet PO PRN (19:20)
[2016-04-20] MEDS ORDERED: Polyethylene Glycol (PEG) 17 Gm Powder PO PRN (19:20)
[2016-04-20] MEDS ORDERED: Alum-Mag Hydrox-Simeth 30 mL Suspension PO PRN (19:20)
--- NOTE | 2016-04-20 19:23 | PCM.HPMED ---
Subjective Date of Service Apr 20, 2016 Primary Provider: Admitting Physician: Genaro Oreilly MD Primary Care Physician: Blas Lerner MD Attending Physician: Genaro Oreilly MD Chief Complaint: Possible infection of left foot History of Present Illness: 66 year old male with a history of diabetes mellitus, chronic afib, hypertension , osteomyelitis, and recurrent abscess to his left upper thigh who presents to the urgent care after he was sent there by home health nurse who looked his left foot and felt that there may be infection. He states that 3-4 days ago he was walking and he stumbled and he is not clear exactly how he stepped on his foot but he hurt himself he is thinking that his toes folded under an he bore weight on the dorsal aspect of the DIPs. He feels like he is been fine and denies any fevers chills also like his foot looks the same if not better than it has in the past. He feels like he hurt it and it is getting better. He saw his infectious disease specialist at [place] yesterday who looked at his leg but not his foot who thought he looked great. He for his part does not feel like there is anything new going on but is very cautious as he was basically healthy never having missed work until all of his issues with his left leg started in August 2015 shortly after he retired. Prior to that in 30 years he never missed a day of work to illness. Review of Systems: Gen.: No fevers chills weight loss weight gain Eyes: no visual disturbances or blurring vision HEENT: No nose/throat drainage, no pain in ears or throat, no hearing loss Lymph: No lymph nodes noted Cardiac: No chest pain, orthopnea, PND, palpitations , pedal edema or dyspnea on exertion Pulmonary: no cough, wheezing or bringing up of sputum GI: No anorexia nausea vomiting blood or black in the stool : no dysuria hematuria urinary frequency or decrease in urine output Musculoskeletal: Joint swelling no joint pain no new muscle aches or back pain positive chronic leg weakness on the left Neuro: No syncope, seizures no loss of consciousness no new focal weakness, numbness or tingling Psychiatric: New new anxiety insomnia or depression Endocrine: No new heat or cold intolerances polyuria or polydipsia Hematology: No lymphadenopathy or easy bleeding or bruising noted skin: No new rashes, stasis dermatitis Allergies Coded Allergies: No Known Allergies (Verified Allergy, Unknown, 03/08/16) Home Medications Ertapenem 1 g daily Ascorbic Acid (Vitamin C) 1,000 Mg Tab.chew 1,000 MG PO DAILY (Reported) Aspirin (Aspirin) 325 Mg Tablet.dr 325 MG PO DAILY (Reported) Atorvastatin (Lipitor) 20 Mg Tablet 20 MG PO DAILY (Reported) Cefazolin Sodium (Cefazolin IV) 1 Gm Vial 2 GM IV Q8H Prescribed by: ROSALINDA MARTINEZ MD Cholecalciferol (Vitamin D3) (Vitamin D3) 2,000 Unit Capsule 2,000 UNIT PO DAILY (Reported) Diltiazem ER (Diltiazem ER) 120 Mg Cap.er.12h 120 MG PO DAILY (Reported) Fenofibrate (Fenofibrate) 160 Mg Tablet 160 MG PO DAILY (Reported) Finasteride (Finasteride) 5 Mg Tablet 5 MG PO DAILY (Reported) Insulin Detemir (Levemir Flextouch) 100 Unit/1 Ml Insuln.pen 30 UNIT SQ QAM ( Reported) Insulin Lispro (HumaLOG U100 Insulin Pen) 100 Unit/1 Ml Insuln.pen UNIT SUBQ TID -INSULIN (Reported) sliding scale insulin Melatonin/Pyridoxine (Melatonin 5 mg Tablet) 1 Each Tablet 1 EACH PO HS ( Reported) Metformin (Metformin) 500 Mg Tablet 1,000 MG PO BID (Reported) Metronidazole (Flagyl) 500 Mg Tablet 500 MG PO Q8H Prescribed by: ROSALINDA MARTINEZ MD Mirtazapine (Mirtazapine) 15 Mg Tablet 15 MG PO HS (Reported) Tamsulosin (Flomax) 0.4 Mg Capsule 0.4 MG PO DAILY (Reported) Venlafaxine ER (Effexor XR) 75 Mg Cap.er.24h 225 MG PO DAILY (Reported) Vitamin E Mixed (Vitamin E) 400 Unit Capsule 400 UNIT PO DAILY (Reported) PMH Hydrocele BPH w/o LUTS Cavitary Lesion of Lung Chronic Atrial Fibrillation T2DM requiring Insulin H/o Osteomyelitis of left femur H/o Perirectal Absccess Chronic Anemia Hyperlipidemia Mood disorder BPH Chronic Atrial fibrillation, Asymptomatic Bacteriuria, Surgical History Multiple I&D with drain placement of left thigh/merced-rectal abscess Complicated left thigh and pelvic abscess Left trochanteric osteomyelitis left thigh cellulitis Family History History of [place] and Stroke- Father Social History Hx Alcohol Use: Yes ("OCCASIONALLY") Hx Substance Use: No Hx Tobacco Use: No Smoking Status: Never Smoker Living Arrangement: Assisted Living Social History Hx Alcohol Use: Yes ("OCCASIONALLY") Hx Substance Use: No Hx Tobacco Use: No Smoking Status: Never Smoker Exam Vital Signs Vital Sign - Last Date Time Temp Pulse Resp B/P Pulse Ox O2 Delivery O2 Flow Rate FiO2 04/20/16 18:17 36.9 82 16 142/76 99 Room Air Exam Gen.- A+ O 3 . Thin male lying in pretty apparent pain from muscle spasms when I walked in the room but it settles down quickly Eyes- open conjunctiva clear, pupils equal nonicteric Mouth- oral mucosa moist, no exudate ENT- ears normal, nose normal Neck- supple/trach midline CVS- RRR no murmur or gallop Lungs- CTA GI- NABS/NT soft Musc- moving 4 no obvious deformity Neuro- cranial nerves II through XII intact to gross examination, nonfocal Skin- warm and dry, patient has bilateral stasis dermatitis or sort of lightish red spots bilaterally on his feet but they are worse on the left than the right. On the dorsal aspect above the second and third digits of the foot there is a 1-1/2 cm diameter flocculent area it does not appear to be an infection per se nor does it appear to be a bruise, there are multiple scars up and down the lateral aspect of the left thigh and buttock where he has had drainage done and there is obvious deformities of the muscle there 3 2-3 cm on the leg then a 7 cm one on the left buttock cheek they all appear clean dry and intact and well-healed Psych- pleasant and appropriate, Lab and Diagnostics Labs WBC 8.7, Hg 7.0, PLT 168, MCV 109.4 NA 1:30 6K4.3, CL 102 CO2 20 3B UN 37, CR 1.3GLUC 234 LFTs WNL CRP 3.8, ESR greater than 140 X-Rays, CTs and MRIs Foot film can certainly reviewed there was initially concern about gas however read by radiologist shows no acute abnormality Assessment & Plan 66-year-old male with a extensive complicated medical history directly admitted from urgent care due to concerns for infection of the left foot, the concern was due to the discoloration left is greater than right as well as the fact that there is the flocculent area as described over the third and fourth digits. This does not appear acutely infected to me, and as alarming as this patient's labs are there are his baseline. He was seen by his infectious disease specialist yesterday who unfortunately did not examine the foot but also found no signs of sepsis and the patient states he is feeling better. As long as the foot is not getting worse and there are no overt signs of infection I would discharge this patient home in the morning without changing his regimen. Left foot discoloration/possible infection- continue Invanz as previously as per his infectious disease specialist in [place]. The major concern was possible gas that was read by the urgent care physician who obtained the x-ray this was not supported by the radiologist read, I did see a dark spot a bit higher and if in doubt one may request an over read by the light of day. Chronic macrocytic anemia-patient's hemoglobin at best has gotten up to 8 point something, this is around his baseline and needs to be followed but no acute intervention Hyperglycemia/IDDM-hemoglobin A1c is pending, continuing the patient's home regimen of metformin and insulin plus some sliding scale Abnormal ESR -this patient has had an ESR greater than 140 since February, his C RP surprisingly is only 3.8 This unfortunate gentleman only just retired from knowing him [employer] where he had worked for 30 years and never missed a day of work due to illness and then the month after developed these infections in his left thigh that have caused him a great deal of disability since then. He has relieved to hear that there does not appear to be anything acute happening, he feels well and is anxious to discharge in the morning if possible. Time spent 60 Genaro Oreilly MD Apr 20, 2016 19:23
[2016-04-20] MEDS ORDERED: OXYC5TAB72 PO (20:33)
[2016-04-20 20:39] LABS: BASOPHILS % (AUTO) 0.2 % (0-3); MONOCYTES % (AUTO) 22.8 % (4-12); Mean Corpuscular Hemoglobin 34.7 pg (27.0-35.0); Mean Corpuscular Volume 109.4 fL (81-100); NEUTROPHILS % (AUTO) 56.8 % (40-74); Platelet Count 168 bil/L (150-400)
[2016-04-20 20:55] LABS: ERYTHROCYTE SEDIMENTATION RATE > 140 mm/hr (0-30)
[2016-04-20] MEDS ORDERED: CeFAZolin 1,000 mg Inj IV SCH (21:20)
[2016-04-20] MEDS ORDERED: [UNRECOGNIZED DRUG - REMARK] PO PRN (21:20)
--- NOTE | 2016-04-20 21:30 | NUR ---
paged about pain Pt. in severe pain. PO tylenol ineffective for pain. paged, as pt. requested his home dose of oxycodone. MD ordered home dose of oxycodone (10mg) which was given. Will continue to monitor.
[2016-04-20] MEDS ORDERED: HYDROmorphone 1 mg/mL Inj IVPUSH ONE (21:40)
[2016-04-20 22:08] LABS: APPEARANCE,URINE SLIGHTLY CLOUDY (CLEAR,HAZY); COLOR,URINE YELLOW (YELLOW); OCCULT BLOOD,URINE SMALL (NEGATIVE); PH,URINE 5.5 (5.0-8.0)
[2016-04-20 22:09] LABS: UROBILINOGEN,URINE NORMAL (NORMAL)
[2016-04-20 22:23] VITALS: BP 122/76; PULSE 84; RESP 19; O2SAT 99
[2016-04-20] MEDS ORDERED: Ertapenem Inj 1,000 MG in 0.9% Sodium Chloride 50 ML IV SCH (23:29)
[2016-04-21] MEDS ORDERED: 0.9% Sodium Chloride 250 ML ONE (00:08)
[2016-04-21] MEDS: Insulin Human REGular 300 Unit/3 mL Inj SUBQ SCH ×2 (02:30→10:50)
[2016-04-21 04:47] VITALS: BP 137/75; PULSE 89; RESP 18; O2SAT 100
[2016-04-21] MEDS ORDERED: Insulin GLARgine 100 Unit/mL Syringe SUBQ SCH (08:30)
[2016-04-21] MEDS ORDERED: DILTIAZEM 120 MG PO SCH (08:30)
[2016-04-21] MEDS ORDERED: FENOFIBRATE 160 MG PO SCH (08:30)
[2016-04-21] MEDS ORDERED: Ascorbic Acid 500 mg Tablet PO SCH (08:30)
[2016-04-21] MEDS ORDERED: Diltiazem CD 120 mg ER24 Capsule PO SCH (08:30)
[2016-04-21] MEDS ORDERED: Venlafaxine XR 75 mg ER24 Capsule PO SCH (08:30)
[2016-04-21] MEDS ORDERED: CEPH-512 PO (10:35)
[2016-04-21] MEDS ORDERED: INVANZ1I IV (10:36)
--- NOTE | 2016-04-21 14:31 | NUR ---
Discharge Pt. discharged to home in stable condition at 1200. Transported via w/c to private vehicle. Pts. friend driving. IV dc'd prior to discharge. PIC line covered and saline locked. Pt has all belongings, instructions and scripts. No questions or concerns at this time.
--- NOTE | 2016-04-21 15:29 | PCM.DC.MED ---
Discharge Summary Date of Service Apr 21, 2016 Dates of Hospitalization Date of Hospital Admission Apr 20, 2016 at 18:09 Date of Discharge: Apr 21, 2016 Providers: Admitting Physician: Genaro Oreilly MD Primary Care Physician: Blas Lerner MD Attending Physician: Genaro Oreilly MD Diagnosis at Time of Discharge Diagnosis at Time of Discharge acute problems #Left foot discoloration/possible infection chronic problems #Complicated left thigh and pelvic abscess, Left trochanteric osteomyelitis, left thigh cellulitis, pt underwent extensive surgery at from last hospitalization #Chronic macrocytic anemia #Hyperglycemia/IDDM Procedures XRay, CTs & MRIs PROCEDURE: X-RAY LEFT FOOT COMPLETE, MINIMUM THREE VIEWS ([id number]) INDICATIONS: LEFT FOOT PAIN TECHNIQUE: 3 views of the foot were acquired. COMPARISON: None. FINDINGS: Bones: No fractures or dislocations. No suspicious bony lesions. Soft tissues: No tibiotalar joint effusion. Achilles tendon appears normal. IMPRESSION: Acute bony abnormality is not identified. Dictated by: Saúl Johnston M.D. on 04/20/2016 at 21:15 Approved by: Saúl Johnston M.D. on 04/20/2016 at 21:16 Brief History HPI obtained by 66 year old male with a history of diabetes mellitus, chronic afib, hypertension , osteomyelitis, and recurrent abscess to his left upper thigh who presents to the urgent care after he was sent there by home health nurse who looked his left foot and felt that there may be infection. He states that 3-4 days ago he was walking and he stumbled and he is not clear exactly how he stepped on his foot but he hurt himself he is thinking that his toes folded under an he bore weight on the dorsal aspect of the DIPs. He feels like he is been fine and denies any fevers chills also like his foot looks the same if not better than it has in the past. He feels like he hurt it and it is getting better. He saw his infectious disease specialist at [facility] yesterday who looked at his leg but not his foot who thought he looked great. He for his part does not feel like there is anything new going on but is very cautious as he was basically healthy never having missed work until all of his issues with his left leg started in August 2015 shortly after he retired. Prior to that in 30 years he never missed a day of work to illness. Hospital Course acute problems #Left foot discoloration/possible infection Patient was admitted with concern for cellulitis on the left anterior foot. Given patient's extensive history of infection with persistent perianal abscess , OM from prior hospitalization, pt was started with cefazolin, continued ertapenem. Xray was unremarkable for gas/abscess. pt didn't show any signs of sepsis. Cellulitis rapidly improved on following day. It was decided to continue keflex for 10days in total with Ertapenem given good response, better coverage for MSSA. pt was asked to stop it if patient develops any side effects. Pt will have good follow up with RN visit, twice a week. #Complicated left thigh and pelvic abscess, Left trochanteric osteomyelitis, left thigh cellulitis, pt underwent extensive surgery at from last hospitalization, currently on ertapenem scheduled to finish in next week, therefore it contiued, clinically stable chronic problems #Chronic macrocytic anemia at baseline h/h #Hyperglycemia/IDDM Exam Vital Signs (Last) Date Time Temp Pulse Resp B/P Pulse Ox O2 Delivery O2 Flow Rate FiO2 04/21/16 04:47 36.8 89 18 137/75 100 Room Air Exam NAD, comfortably laying down on the bed no JVD, MMM, no LAD RRR, nl s1, s2 no mrg CTAB, no w,c S,ND,NT,normoactive BS+ EXT: healed wound on Lt lateral thigh Lt foot-mildly erythem Test 04/20/16 20:24 04/20/16 21:39 White Blood Count 8.7th/mm3 (3.8-10.1) Red Blood Count 2.02mil/mm3 (4.40-5.80) Hemoglobin 7.0g/dL (13.8-17.2) Hematocrit 22.1% (41.0-50.0) Mean Corpuscular Volume 109.4fL (81-100) Mean Corpuscular Hemoglobin 34.7pg (27.0-35.0) Mean Corpuscular Hemoglobin Concent 31.7% (32.0-37.0) Red Cell Distribution Width 23.4% (12.3-15.4) Platelet Count 168bil/L (150-400) Neutrophils (%) (Auto) 56.8% (40-74) Lymphocytes (%) (Auto) 16.2% (14-46) Monocytes (%) (Auto) 22.8% (4-12) Eosinophils (%) (Auto) 3.0% (0-5) Basophils (%) (Auto) 0.2% (0-3) Erythrocyte Sedimentation Rate > 140mm/hr (0-30) Sodium Level 136mEq/L (134-144) Potassium Level 4.3mEq/L (3.5-5.2) Chloride Level 102mEq/L (97-108) Carbon Dioxide Level 23mmol/L (18-29) Blood Urea Nitrogen 37mg/dL (8-27) Creatinine 1.28mg/dL (0.76-1.27) Estimat Glomerular Filtration Rate 60mL/min (>59) Glucose Level 234mg/dL (60-99) Hemoglobin A1c 6.4% (4.8-5.6) Lactic Acid Level 1.1mmol/L (0.4-2.0) Calcium Level 9.0mg/dL (8.5-10.1) Total Bilirubin 0.2mg/dL (0.0-1.2) Aspartate Amino Transf (AST/SGOT) 13U/L (0-50) Alanine Aminotransferase (ALT/SGPT) 7U/L (0-44) Alkaline Phosphatase 77U/L (25-160) C-Reactive Protein 3.8mg/dL (0.0-0.5) Total Protein 6.9g/dL (6.4-8.4) Albumin 3.6g/dL (3.4-5.0) Urine Color Yellow (YELLOW) Urine Appearance Slightly cloudy Urine pH 5.5 (5.0-8.0) Urine Specific [place] 1.020 (1.003-1.035) Urine Protein 30mg/dL (NEG,TRACE) Urine Glucose (UA) Negativemg/dL (NEGATIVE) Urine Ketones Negativemg/dL (NEGATIVE) Urine Occult Blood Small (NEGATIVE) Urine Nitrite Negative (NEGATIVE) Urine Bilirubin Negative (NEGATIVE) Urine Urobilinogen Normalmg/dL (NORMAL) Urine Leukocyte Esterase Moderate (NEGATIVE) Urine RBC 3-10/hpf (0-2) Urine WBC >50/hpf (0-5) Urine Epithelial Cells Occasional/hpf (NONE-MOD) Urine Crystals None seen (NONE SEEN) Urine Bacteria Few/hpf (NONE-FEW) Urine Hyaline Casts None/lpf (NONE) Urine Granular Casts None seen (NONE SEEN) Urine Waxy Casts None seen (NONE SEEN) Urine Red Blood Cell Casts None seen (NONE SEEN) Urine White Blood Cell Casts None seen (NONE SEEN) Urine Mucus None seen (None Seen) Urine Trichomonas None seen (NONE SEEN) Urine Yeast None (NONE SEEN) Urinalysis Comment None Urine Culture Reflexed Indicated Discharge Medications Discharge Medications Ascorbic Acid (Vitamin C) 1,000 Mg Tab.chew 1,000 MG PO DAILY (Reported) Aspirin (Aspirin) 325 Mg Tablet.dr 325 MG PO DAILY (Reported) Atorvastatin (Lipitor) 20 Mg Tablet 20 MG PO DAILY (Reported) Cephalexin (Keflex) 500 Mg Capsule 500 MG PO QID Prescribed by: ALEXANDRE MARTINEZ MD Cholecalciferol (Vitamin D3) (Vitamin D3) 2,000 Unit Capsule 2,000 UNIT PO DAILY (Reported) Diltiazem ER (Diltiazem ER) 120 Mg Cap.er.12h 120 MG PO DAILY (Reported) Ertapenem Sodium (Invanz) 1,000 Mg/10 Ml Vial 1,000 MG IV DAILY Prescribed by: ALEXANDRE MARTINEZ MD Fenofibrate (Fenofibrate) 160 Mg Tablet 160 MG PO DAILY (Reported) Finasteride (Finasteride) 5 Mg Tablet 5 MG PO DAILY (Reported) Insulin Detemir (Levemir Flextouch) 100 Unit/1 Ml Insuln.pen 30 UNIT SQ QAM ( Reported) Insulin Lispro (HumaLOG U100 Insulin Pen) 100 Unit/1 Ml Insuln.pen UNIT SUBQ TID -INSULIN (Reported) sliding scale insulin Melatonin/Pyridoxine (Melatonin 5 mg Tablet) 1 Each Tablet 1 EACH PO HS ( Reported) Metformin (Metformin) 500 Mg Tablet 1,000 MG PO BID (Reported) Mirtazapine (Mirtazapine) 15 Mg Tablet 15 MG PO HS (Reported) Tamsulosin (Flomax) 0.4 Mg Capsule 0.4 MG PO DAILY (Reported) Venlafaxine ER (Effexor XR) 75 Mg Cap.er.24h 225 MG PO DAILY (Reported) Vitamin E Mixed (Vitamin E) 400 Unit Capsule 400 UNIT PO DAILY (Reported) As needed Acetaminophen (Extra Strength Non-Aspirin) 500 Mg Tablet 1,000 MG PO Q4H PRN PRN For Pain (Reported) oxyCODONE (oxyCODONE) 5 Mg Tablet 10 MG PO Q4H PRN PRN For Pain (Reported) Followup Plan Disposition: home Time spent 35min Alexandre Martinez MD Apr 21, 2016 15:26
--- NOTE | 2016-04-21 15:31 | PCM.DIMED ---
Discharge Instructions Date of Service Apr 21, 2016 Dates of Hospitalization Apr 20, 2016 at 18:09 Discharge Diagnosis Discharge Diagnosis acute problems #Left foot discoloration/possible infection chronic problems #Complicated left thigh and pelvic abscess, Left trochanteric osteomyelitis, left thigh cellulitis, pt underwent extensive surgery at from last hospitalization #Chronic macrocytic anemia #Hyperglycemia/IDDM Medication Instructions take keflex four times per day for skin infection Diet No restrictions Activity No restrictions Patient Instructions You were hospitalized with skin infection in your foot, treated with antibiotics. Follow-up plan please follow up with the primary doctor in 2 weeks Follow-up Provider: Blas Lerner MD Follow-up with PCP in: 2 weeks Alexandre Zacarias MD Apr 21, 2016 15:31
== END 2016-04-21 12:08 | disposition home or self-care (01) ==
LOC: OSC 18:09
PROVIDERS: ADMIT Hospitalist; ATTEND Hospitalist
DX: L81.9 Disorder of pigmentation, unspecified (principal); L02.416 Cutaneous abscess of left lower limb; M86.8X6 Other osteomyelitis, lower leg; D53.9 Nutritional anemia, unspecified; E11.65 Type 2 diabetes mellitus with hyperglycemia; I10 Essential (primary) hypertension; E78.5 Hyperlipidemia, unspecified; I48.2 Chronic atrial fibrillation; N40.0 Benign prostatic hyperplasia without lower urinary tract symptoms; Z79.4 Long term (current) use of insulin; Z79.82 Long term (current) use of aspirin; Z79.84 Long term (current) use of oral hypoglycemic drugs
CPT/HCPCS: 36415; 80053; 81000; 83036; 83605; 85025; 85651; 86140; 87040; 87086; 96365; 96375; G0378; G0379; J1170; J1335; J1815; J7050